=== PATIENT | female | born 1955 | race Caucasian/White ===

== ENCOUNTER → 2017-04-01 | Outpatient (CLI) | payer BC, SELFPAY | PROVIDERS: Visit Provider Nurse Anesthetist, Certified Registered | DX: M54.5 Low back pain (principal) | CPT/HCPCS: 72148; 76376 ==

== ENCOUNTER 2017-04-10 10:56 | Day surgery (SDC) | payer BC, SELFPAY ==
[2017-04-10 11:32] VITALS: BP 154/89; BP 160/84; BP 161/71; BP 178/95; PULSE 71; PULSE 80; PULSE 82; PULSE 84; RESP 18; RESP 20; TEMP 36.2; TEMP 36.6; O2SAT 99
[2017-04-10 11:53] LABS: POC Glucose,Bedside 111 mg/dL
--- NOTE | 2017-04-10 11:55 | HMH.PMPROC ---
- Procedure Date: 04/10/17 Time: 11:55 Anesthesiologist:: Vijay Lerma MD Complications:: None Pre-procedure Diagnosis:: Sacroiliitis Post-procedure Diagnosis:: Same Indications for Procedure:: This patient is a pleasant 61-year-old white female who we are treating for low back pain and bilateral hip pain and low back pain. She has increasing pain in her right hip and right buttock area. Pain is while she is sitting and driving. We did get an MRI of the lumbar spine which shows degenerative changes at L4-L5 and L3-L4 and L2-L3 with facet hypertrophy and bulging disc with neuroforaminal narrowing. She did get a piriformis injection which did not give her much benefit. She presents for right SI joint injection today. She is tender over the right SI joint. She does have a positive Lashanda's test. We will do a right SI joint injection under fluoroscopy today to see if this will help better. Procedure Details:: Right SI joint injection under fluoroscopy Informed consent was obtained and the risks and benefits of the procedure was going to the patient. Patient was taken to the procedure room. Patient was placed prone on the procedure table. The right hip was prepped using ChloraPrep. The skin and subcutaneous tissues were anesthetized using lidocaine. I placed a 22-gauge spinal needle into the inferior aspect of the right SI joint. Needle placement was confirmed with dye. After this we injected 5 mL bupivacaine 0.25% and Depo-Medrol 80 mg into the right SI joint. The patient tolerated the procedure well with no complication. Plan and Disposition:: We have reviewed the MRI with this patient. We will follow-up with her in 2 weeks. If she does not get any benefit we may proceed with a lumbar epidural steroid injection and fluoroscopy at L4-L5.
== END 2017-04-10 12:13 | disposition home or self-care (01) ==
PROVIDERS: Family Provider Internal Medicine Adolescent Medicine; PCP Internal Medicine Adolescent Medicine; Visit Provider Anesthesiology
DX: M46.1 Sacroiliitis, not elsewhere classified (principal)
CPT/HCPCS: 27096; 82962; G0260; J1040; Q9966

== ENCOUNTER → 2017-06-22 12:54 | Outpatient (POV) | payer BC, SELFPAY ==
[2017-06-22 13:35] VITALS: BP 163/77; PULSE 67; RESP 20; O2SAT 99; BMI 40.8
--- NOTE | 2017-06-22 14:21 | P.CONS_ITS ---
[facility] Pain Management SOAP Note Subjective:: This patient is a pleasant 61-year-old white female who we are treating low back pain and bilateral hip pain. She did not get much benefit from her right SI joint injection. However, she is doing physical therapy which has helped tremendously. She did get benefit from a previous left SI joint injection and this pain is just now starting to return. We will see this patient back in 2 months. We will plan on a left SI joint injection if needed. This patient is leaving for [place] in September and would like to get an injection prior to her trip. Objective:: Alert and oriented ?3 in no acute distress. Patient does have an antalgic gait. Motor strength of the lower extremities is 5/5. There is no gross sensory deficit. Patient does have tenderness over left SI joint. There is a positive Lashanda's test on the left side. Assessment:: Degenerative disc disease of lumbar spine with lumbar radiculopathy symptoms. Sacroiliitis. Plan:: We will seek approval and plan on left SI joint injection if needed in August. This will be prior to the patient's trip in September.
== END ==
PROVIDERS: Family Provider Internal Medicine Adolescent Medicine; PCP Internal Medicine Adolescent Medicine; Visit Provider Anesthesiology
DX: M54.16 Radiculopathy, lumbar region (principal); M46.1 Sacroiliitis, not elsewhere classified
CPT/HCPCS: 99212

== ENCOUNTER → 2017-07-13 16:31 | Outpatient (CLI) | payer BC, SELFPAY ==
[2017-07-13 16:49] LABS: Basophils # 0.1 K/mm3 (0-0.2); Basophils % 0.7 % (0.1-2.0); Eosinophils # 0.2 K/mm3 (0.0-0.4); Eosinophils % 1.6 % (0.1-12.0); Hematocrit 43.9 % (37.0-47.0); Hemoglobin 13.5 g/dL (12.2-16.2); Lymphocytes # 2.6 K/mm3 (0.7-4.5); Lymphocytes % 26.4 K/mm3 (10-50); Mean Corpuscular HGB Conc 30.7 g/dL (31.8-35.4); Mean Corpuscular Hemoglobin 28.8 pg (27.0-31.2); Mean Corpuscular Volume 93.9 fl (81-99); Mean Platelet Volume 7.5 fl (7.4-10.4); Monocytes # 0.5 K/mm3 (0.1-1.0); Monocytes % 5.4 % (1.7-9.3); Neutrophils # 6.6 K/mm3 (1.8-7.8); Neutrophils % 65.9 % (37.0-80.0); Platelet Count 312 K/mm3 (142-424); Red Blood Count 4.67 M/mm3 (4.20-5.40); Red Cell Distribution Width 13.2 % (11.5-17.5)
[2017-07-13 17:12] LABS: Alanine Aminotransferase 33 U/L (12-78); Albumin Level 3.8 gm/dL (3.4-5.0); Alkaline Phosphatase 99 U/L (46-116); Anion Gap 11.2 mEq/L (5-15); Aspartate Amino Transferase 19 U/L (15-37); Bilirubin,Total 0.7 mg/dL (0.2-1.0); Blood Urea Nitrogen 17 mg/dL (7-18); Calcium 9.3 mg/dL (8.5-10.1); Carbon Dioxide 31 mmol/L (21.0-32.0); Chloride 104 mmol/L (98-107); Creatinine,Serum 0.77 mg/dL (0.55-1.02); Estimated Glomerular Filt Rate 76 ml/min (>60); Free Thyroxine Index 3.7 ug/dL (5.93-13.13); GFR (African American) 92 ML/MIN (>60); Globulin 3.8 gm/dl (1.3-3.2); Glucose 176 mg/dL (74-106); Magnesium 1.7 mg/dL (1.4-2.2); Potassium 4.2 mmoL/L (3.5-5.1); Sodium 142 mmol/L (136-145); Thyroid Stimulating Hormone 0.42 uIU/ml (0.358-3.740); Total Protein,Serum 7.6 gm/dL (6.4-8.2); Triiodothryronine (T3) Uptake 37 % (31-39)
[2017-07-16 15:51] LABS: Vitamin B12 485 pg/mL (232-1245)
== END ==
PROVIDERS: Visit Provider Internal Medicine Adolescent Medicine
DX: R06.00 Dyspnea, unspecified (principal); E03.9 Hypothyroidism, unspecified
CPT/HCPCS: 36415; 80053; 82607; 83735; 84436; 84443; 84479; 85025

== ENCOUNTER → 2017-08-04 10:19 | Outpatient (POV) | payer BC, SELFPAY ==
[2017-08-04 10:36] VITALS: BP 140/68; PULSE 78; RESP 18; TEMP 36.6; O2SAT 98; BMI 43.2
--- NOTE | 2017-08-04 10:59 | HMH.PAINSOAP ---
[facility] Pain Management SOAP Note Subjective:: This patient is a pleasant 62-year-old white female who presents today for follow-up. We are treating her for low back pain and bilateral hip pain. Patient states she has more hip pain on her right side. Patient has had bilateral SI joint injections and has had good relief with him however she still has continuing right hip pain. Patient is going to [place] in September and would like to discuss potentially having another set of bilateral SI joint injections prior to her trip. Patient is done with well with this in the past 80% relief up to 2 months. Patient has tried and failed physical therapy, anti-inflammatories, medications. Patient does have an MRI showing foraminal narrowing worse on the right side at L4-L5. ROS General: no recent weight change, no fever, no sleep disturbances Respiratory: no cough, no shortness of air, no recurring pulmonary infections Cardiovascular/Peripheral Vascular: No chest pain, No palpitations, no edema, no shortness of breath. Gastrointestinal: no incontinence, normal bowel movements reported Genitourinary: no incontinence Musculoskeletal: Bilateral SI joint pain Psychiatric: normal mood/ affect, [denies depression], [denies anxiety] Neurological: [denies weakness in extremities], [denies balance issues] Objective:: Physical Exam General: Alert and oriented x3, no acute distress, pleasant and cooperative, [on room air] Lungs: Resps E/U, Symmetrical chest expansion, Eyes: PERRL Musculoskeletal: Flexion and extension of lumbar spine somewhat guarded secondary to pain, deep tendon reflexes normal, strength in upper and lower extremities [5/5], slightly antalgic gait noted, positive Lashanda's test bilaterally, extreme point tenderness over bilateral SI joints Neurological: speech clear, fiber artist equal, no gross sensory deficits Assessment:: Sacroiliitis, degenerative disc disease of the lumbar spine radiculopathy Plan:: We will seek approval for bilateral SI joint injections. Patient has done well with these in the past. I believe that this would be beneficial prior to her trip in September. I will follow-up with the patient after her injections. Patient's tried and failed physical therapy, anti-inflammatories, medications. This note was dictated using voice recognition software and may contain errors or omissions
--- NOTE | 2017-08-04 11:13 | P.CONS_ITS ---
[facility] Pain Management SOAP Note Subjective:: This patient is a pleasant 62-year-old white female who presents today for follow-up. We are treating her for low back pain and bilateral hip pain. Patient states she has more hip pain on her right side. Patient has had bilateral SI joint injections and has had good relief with him however she still has continuing right hip pain. Patient is going to [place] in September and would like to discuss potentially having another set of bilateral SI joint injections prior to her trip. Patient is done with well with this in the past 80% relief up to 2 months. Patient has tried and failed physical therapy, anti- inflammatories, medications. Patient does have an MRI showing foraminal narrowing worse on the right side at L4-L5. ROS General: no recent weight change, no fever, no sleep disturbances Respiratory: no cough, no shortness of air, no recurring pulmonary infections Cardiovascular/Peripheral Vascular: No chest pain, No palpitations, no edema, no shortness of breath. Gastrointestinal: no incontinence, normal bowel movements reported Genitourinary: no incontinence Musculoskeletal: Bilateral SI joint pain Psychiatric: normal mood/ affect, [denies depression], [denies anxiety] Neurological: [denies weakness in extremities], [denies balance issues] Objective:: Physical Exam General: Alert and oriented x3, no acute distress, pleasant and cooperative, [ on room air] Lungs: Resps E/U, Symmetrical chest expansion, Eyes: PERRL Musculoskeletal: Flexion and extension of lumbar spine somewhat guarded secondary to pain, deep tendon reflexes normal, strength in upper and lower extremities [5/5], slightly antalgic gait noted, positive Lashanda's test bilaterally, extreme point tenderness over bilateral SI joints Neurological: speech clear, circular knitter helper equal, no gross sensory deficits Assessment:: Sacroiliitis, degenerative disc disease of the lumbar spine radiculopathy Plan:: We will seek approval for bilateral SI joint injections. Patient has done well with these in the past. I believe that this would be beneficial prior to her trip in September. I will follow-up with the patient after her injections. Patient' s tried and failed physical therapy, anti-inflammatories, medications. This note was dictated using voice recognition software and may contain errors or omissions
== END ==
PROVIDERS: Family Provider Internal Medicine Adolescent Medicine; PCP Internal Medicine Adolescent Medicine; Visit Provider Clinical Nurse Specialist Family Health
DX: M51.16 Intervertebral disc disorders with radiculopathy, lumbar region (principal); M46.1 Sacroiliitis, not elsewhere classified
CPT/HCPCS: 99212

== ENCOUNTER → 2017-08-18 07:14 | Outpatient (CLI) | payer BC, SELFPAY ==
--- NOTE | 2017-08-18 07:20 | NM_ITS ---
SPECT MYOCARDIAL PERFUSION SCAN, REST AND STRESS: EXERCISE STRESS: [facility] REVIEW QGS EF AND WALL MOTION EVALUATION: QPS - PERFUSION EVALUATION: HISTORY: Chest pain, SOB, HTN, DM PROCEDURE: Rest imaging performed after administration of10.41 millicuries Tc MIBI. Dose administered at7:35 a.m., with imaging thereafter. Stress imaging was then performed following4 minutes 50 seconds of exercise stress. The patient achieved a heart [id number] with projected heart rate of133 . Resting BP152/83 with stress 220/78. At maximum exercise stress,29.4 millicuries Tc MIBI administered at9:25 a.m. with minutes thereafter. FINDINGS: Perfusion Evaluation: The single slice spect images as well as the [facility] bull's-eye data summary were reviewed. Wall Motion and Ejection Fraction Evaluation: Gated SPECT review and analysis used to evaluate these features. There is a 70 % left ventricular ejection fraction. There seems to be good wall motion Patient exercised 4 minutes 50 seconds on standard Issa protocol. During exercise patient had exercise-induced polymorphic ventricular tachycardia/torsades. The EKG portion of this test was considered highly abnormal Stress images reveal mild to moderately decreased activity in the anterior wall while rest images reveal moderate to severely decreased activity in the anterior wall. Gated images calculated ejection fraction of 70% with some mild apical hypokinesis IMPRESSION: High risk abnormal stress test with exercise-induced polymorphic ventricular tachycardia. Anterior defect with ischemia and reverse redistribution. Normal ejection fraction with mild regional wall motion abnormality
--- NOTE | 2017-08-18 09:02 | HMH.ITSHM ---
NOVOLOG VICTOSA METFORMIN LOSARTAN LOVASTATIN ASA GABAPENTIN LEVOTHYROXINE
== END ==
PROVIDERS: Family Provider Internal Medicine Adolescent Medicine; PCP Internal Medicine Adolescent Medicine; Visit Provider Internal Medicine Adolescent Medicine
DX: R07.9 Chest pain, unspecified (principal)
CPT/HCPCS: 78452; 93017; A9502

== ENCOUNTER 2017-09-08 09:57 | Outpatient (RCR) | payer BC, SELFPAY | END 2017-12-11 14:25 | disposition home or self-care (01) | LOC: PT 09:57 | PROVIDERS: Family Provider Internal Medicine Adolescent Medicine; PCP Internal Medicine Adolescent Medicine; Visit Provider Internal Medicine | DX: I50.30 Unspecified diastolic (congestive) heart failure (principal) | CPT/HCPCS: 93798 ==

== ENCOUNTER → 2017-09-11 07:41 | Outpatient (CLI) | payer BC, SELFPAY | PROVIDERS: Family Provider Internal Medicine Adolescent Medicine; PCP Internal Medicine Adolescent Medicine; Visit Provider Internal Medicine | DX: I10 Essential (primary) hypertension (principal); I51.9 Heart disease, unspecified; I45.10 Unspecified right bundle-branch block | CPT/HCPCS: 93017 ==

== ENCOUNTER → 2017-10-05 11:44 | Outpatient (POV) | payer BC, SELFPAY ==
[2017-10-05 11:59] VITALS: BP 145/90; PULSE 62; RESP 18; O2SAT 98; BMI 38.9
--- NOTE | 2017-10-05 12:00 | HMH.PAINSOAP ---
[facility] Pain Management SOAP Note Subjective:: Patient is a pleasant 62-year-old white female who presents today for follow-up after joint injection and piriformis injection. Patient is doing extremely well. Patient states that she is 80-90% better. Patient is returning from a vacation in which he did a lot of walking and sat on the plane for quite a long time. Patient states she is impressed with how well she is doing. Patient would like to follow-up on an as-needed basis. She rates her pain a 2 out of 10 today. ROS General: no recent weight change, no fever, no sleep disturbances Respiratory: no cough, no shortness of air, no recurring pulmonary infections Cardiovascular/Peripheral Vascular: No chest pain, No palpitations, no edema, no shortness of breath. Gastrointestinal: no incontinence, normal bowel movements reported Genitourinary: no incontinence Musculoskeletal: Bilateral SI joint pain, piriformis pain Psychiatric: normal mood/ affect Neurological: [denies weakness in extremities], [denies balance issues] Objective:: Physical Exam General: Alert and oriented x3, no acute distress, pleasant and cooperative, [on room air] Lungs: Resps E/U, Symmetrical chest expansion, Eyes: PERRL Musculoskeletal: Flexion and extension of lumbar spine somewhat guarded secondary to pain, deep tendon reflexes normal, strength in upper and lower extremities [5/5], antalgic gait noted, tenderness over bilateral SI joints Neurological: speech clear, vice president corporate communications equal, no gross sensory deficits Assessment:: Sacroiliitis, piriformis syndrome Plan:: Follow-up with this patient on an as-needed basis. Patient is doing extremely well at this time. Patient's been instructed to call the office if she needs anything. This note was dictated using voice recognition software and may contain errors or omissions
== END ==
PROVIDERS: Family Provider Internal Medicine Adolescent Medicine; PCP Internal Medicine Adolescent Medicine; Visit Provider Clinical Nurse Specialist Family Health
DX: M46.1 Sacroiliitis, not elsewhere classified (principal)
CPT/HCPCS: 99212

== ENCOUNTER → 2017-11-06 14:24 | Outpatient (CLI) | payer BC, SELFPAY ==
[2017-11-06 16:03] LABS: Anion Gap 11.1 mEq/L (5-15); Blood Urea Nitrogen 34 mg/dL (7-18); Calcium 9.3 mg/dL (8.5-10.1); Carbon Dioxide 30 mmol/L (21.0-32.0); Chloride 102 mmol/L (98-107); Creatinine,Serum 1.22 mg/dL (0.55-1.02); Estimated Glomerular Filt Rate 45 ml/min (>60); GFR (African American) 54 ML/MIN (>60); Glucose 183 mg/dL (74-106); Magnesium 1.9 mg/dL (1.4-2.2); Potassium 5.1 mmoL/L (3.5-5.1); Sodium 138 mmol/L (136-145)
== END ==
PROVIDERS: Visit Provider Physician Assistant
DX: T50.1X5A Adverse effect of loop [high-ceiling] diuretics, initial encounter (principal)
CPT/HCPCS: 36415; 80048; 83735; 83880

== ENCOUNTER → 2017-12-09 11:51 | Outpatient (CLI) | payer BC, SELFPAY | PROVIDERS: PCP Internal Medicine Adolescent Medicine; Visit Provider Internal Medicine | DX: G47.9 Sleep disorder, unspecified (principal); I51.9 Heart disease, unspecified; R40.0 Somnolence; R53.83 Other fatigue; R94.30 Abnormal result of cardiovascular function study, unspecified | CPT/HCPCS: 95806 ==

== ENCOUNTER → 2018-01-22 10:41 | Outpatient (CLI) | payer BC, SELFPAY ==
[2018-01-25 17:18] LABS: H. pylori Breath Test Negative (Negative)
== END ==
PROVIDERS: PCP Internal Medicine Adolescent Medicine; Visit Provider Physician Assistant Medical
DX: R10.13 Epigastric pain (principal)
CPT/HCPCS: 83013

== ENCOUNTER → 2018-03-11 20:07 | Outpatient (CLI) | payer BC, SELFPAY | PROVIDERS: PCP Internal Medicine Adolescent Medicine; Visit Provider Nurse Practitioner Family | DX: G47.33 Obstructive sleep apnea (adult) (pediatric) (principal); E66.9 Obesity, unspecified; I10 Essential (primary) hypertension | CPT/HCPCS: 95810 ==

== ENCOUNTER → 2018-06-07 11:55 | Outpatient (CLI) | payer BC, SELFPAY ==
[2018-06-07 12:35] LABS: Hemoglobin A1C 6.9 % (0.0-7.0)
[2018-06-07 16:16] LABS: Ferritin 18 ng/mL (8-388)
== END ==
PROVIDERS: Visit Provider Specialist
DX: E11.9 Type 2 diabetes mellitus without complications (principal); G25.81 Restless legs syndrome
CPT/HCPCS: 36415; 82728; 83036

== ENCOUNTER → 2018-11-23 08:45 | Outpatient (CLI) | payer BC, SELFPAY ==
--- NOTE | 2018-11-23 09:00 | US_ITS ---
PROCEDURE: US THYROID CLINICAL INDICATION: THYROID NODULE COMPARISON: THY US THYROID from 02/05/2017 FINDINGS: Right lobe: 3.6 x 1.7 x 1.5 cm. There is diffuse heterogeneous echogenicity with multinodular configuration. Left lobe: 4.3 x 1.6 x 1.4 cm with diffuse heterogeneous echogenicity and multinodular configuration. No change in the 8 mm hypoechoic nodule in the upper pole posteriorly. 8 mm hyperechoic nodule lower pole unchanged. 5 mm hypoechoic nodule lower pole unchanged Isthmus: The isthmus is thickened with heterogeneous echogenicity Additional findings: IMPRESSION: No change multinodular goiter Dictated by: Elliot Reilly MD 11/24/2018 05:12 Signed by: <Electronically signed by Elliot Reilly MD in [place]> 11/24/2018 05:12
--- NOTE | 2018-11-23 09:15 | MM_ITS ---
PROCEDURE: MM DIG SCREENING MAMM BI W/CAD CLINICAL INDICATION: SCREENING there is a history of breast cancer in the patient's paternal aunt diagnosed at age 80. There has been a previous biopsy right breast for benign disease. COMPARISON: DMSB DIG MAMM-SCREEN SAMANTHA from 10/01/2015 DMSB DIG MAMM-SCREEN SAMANTHA W/CAD from 03/02/2017 DMDXUAVL DIG MAMM-DX UNI A/VWS-LT W/CAD from 03/19/2017 TECHNIQUE: Standard CC and MLO images were obtained. R2 CAD reviewed. FINDINGS: Scattered fibroglandular densities are seen in both breasts slightly more prominent left breast than right and this was noted previously as well. There are few benign-appearing microcalcifications in each breast. There is a mole marker right breast. There is no suspicious lesion and the low suspicious microcalcifications. IMPRESSION: Fibrofatty parenchyma with no suspicious lesions seen BI-RAD Category: 2 Benign Finding(s) FOLLOW-UP: 1YR 1 Year Follow-up (A letter has been sent to the patient regarding results of the study.) Dictated by: Dr. Russell Hay MD 11/26/2018 11:57 Signed by: <Electronically signed by Dr. Russell Hay MD in [place]> 11/26/2018 11:57
--- NOTE | 2018-11-23 09:15 | XR_ITS ---
PROCEDURE: XR DEXA AXIAL SKELETON CLINICAL HISTORY: OSTEOPENIA COMPARISON: No exams were available for comparison TECHNIQUE: FINDINGS: The L1-L4 density has a T-score of 0.4 with a BMD of 1.229 grams/centimeters This is normal. The lowest hip densities in the left femoral neck with a BMD of 0.844 grams/centimeter sq with T-score of -1.4 consistent with osteopenia IMPRESSION: This patient is considered osteopenic according to the World Health Organization criteria. Bone density is between 10 and 25 percent below young normal . Fracture risk is moderate. Treatment is advised. Based on these results of follow-up exam is recommended in 2 years Dictated by: Elliot Reilly MD 11/23/2018 14:45 Signed by: <Electronically signed by Elliot Reilly MD in [place]> 11/23/2018 14:45
== END ==
PROVIDERS: PCP Internal Medicine Adolescent Medicine; Visit Provider Nurse Practitioner Family
DX: E04.1 Nontoxic single thyroid nodule (principal); M85.89 Other specified disorders of bone density and structure, multiple sites; Z12.31 Encounter for screening mammogram for malignant neoplasm of breast
CPT/HCPCS: 76536; 77067; 77080

== ENCOUNTER → 2018-12-20 07:48 | Outpatient (CLI) | payer BC, SELFPAY ==
--- NOTE | 2018-12-20 08:00 | CA_ITS ---
APPROVED REPORT Exam: Exercise Treadmill Technologist: Erin Fong Ht: 5 ft 4 in Wt: 248 lbs BSA: 2.14 m2 HR: 69 bpm BP: 148/101 mmHg Rhythm: SINUS RHYTHM Medical History Medical History: Hyperlipidemia, HTN, Diabetes Allergies: No known drug allergies Cardiac Risk Factors: HTN, Hyperlipidemia, DM Stress Test Details Test: Exercise stress testing was performed using a Wallace protocol. HR Resting HR: 69 bpm Max Heart Rate (APMHR): 156 bpm Max HR Achieved: 148 bpm Target HR (85% APMHR): 132 bpm % of APMHR: 94 Recovery HR: 80 bpm BP Resting BP: 148.0/101.0 mmHg Max BP: 194.0/76.0 mmHg Recovery BP: 194.0/76.0 mmHg BP response to stress: Abnormal hypertensive response to stress. ECG Resting ECG: SINUS RHYTHM Stress ECG Conclusion WALLACE PROTOCOLCOMPLETED. EXERCISED 6:17 MINUTES WITH MAX HEART RATE 148 BPM WHICH IS 95% OF PM FOR AGE. MAX BP 194/76. METS = 7.0 TEST STOPPED DUE TO LEG WEAKNESS. NO CHEST PAIN OR SOA. POSITIVE LEG WEAKNESS AT PEAK EXERCISE. OCCASIONAL PVC. VENTRICULAR COUPLETS NOTED. GREATER THAN 1.5MM ST DEPRESSION. HYPERTENSIVE RESPONSE. AVERAGE PHYSICAL CAPACITY. OCCASIONAL PVC AND 1 COUPLET NOTED. GREATER THAN 1.5MM ST DEPRESSION. ABNORMAL GXT BUT DOES IN RECOVERY WITHIN 1 MINUTE.. CASE WAS DISCUSSED WITH Abnormal exercise treadmill stress test Electronically signed by : Brian Alvares, 12/23/2018 16:32:28
== END ==
PROVIDERS: PCP Internal Medicine Adolescent Medicine; Visit Provider Internal Medicine
DX: R00.2 Palpitations (principal); R94.30 Abnormal result of cardiovascular function study, unspecified; I45.10 Unspecified right bundle-branch block; E11.9 Type 2 diabetes mellitus without complications; E78.5 Hyperlipidemia, unspecified; G47.33 Obstructive sleep apnea (adult) (pediatric); I10 Essential (primary) hypertension; I51.9 Heart disease, unspecified
CPT/HCPCS: 93017

== ENCOUNTER 2019-02-21 10:30 | Outpatient (RCR) | payer BC, SELFPAY ==
--- NOTE | 2019-02-10 11:42 | HMH.PTOPEV ---
PT Outpatient Evaluation Rehab PT Outpatient Evaluation Start: 02/10/19 10:44 Freq: Status: Active Protocol: Document 02/10/19 10:44 BO (Rec: 02/10/19 11:42 BO [id number]) Electronically Signed By Adis Gray, PT 02/10/19 10:44 Outpatient Therapy Subjective History Subjective History Pt reports falling at home in garage on 01/23/19. Pt reports significant impact to L side/ SH area, and sustained L 8th rib fx. Pt reports lingering L SH blade area pain, burning, and stiffness since injury. Pt reports pain will refer into midline, and inot L UT region, however, reports improved s/s over the last 4-5 days. PMH: cardiac arrythymia Chief Complaint Pain,Stiff Symptom Type Ache,Sharp,Dull,Burning Symptoms Relieved By Rest/Positioning,Heat Symptoms Aggravated By Physical Activity,Lifting Prior Functional Limitations Reaching,Lifting,Housework Current Functional Limitations Reaching,Lifting,Housework, Sleeping Symptom Description Constant but Variable Level of pain today (0-10) 3 Pain scale - at its best (0-10) 3 Pain scale - at its worst (0-10) 6 Shoulder/Elbow Eval Shoulder Objective Measurements Palpation Tenderness Shoulder Palpation Findings Tenderness,Trigger Point, Muscle Guarding Shoulder Palpation Overall Comment 2-3/4 infraspinatus, supraspinatus, UT, lat dorsi Posture Shoulder Posture Standing Position (L) Rounded,(R) Rounded Scapula Posture Sitting Position (L) Protracted,(R) Protracted Scapular Posture Standing Position (L) Protracted,(R) Protracted Flexibilty Deficits Upper Trapezius Muscle Length (R) Moderate Tightness,(L) Moderate Tightness Levaetor Scapulae Muscle Length (R) Moderate Tightness,(L) Moderate Tightness Shoulder ROM Left Shoulder Abduction Active Range of 0-160 Motion (degrees) Shoulder Flexion Active Range of Motion 0-160 (degrees) Query Text: Shoulder MMT Lower Trapezius Strength Grade 4- Good- Middle Trapezius Strength Grade 4- Good- Rhomboids Strength Grade 4- Good- Shoulder Abduction Strength Grade 4 Good Shoulder Flexion Strength Grade 4 Good Shoulder External Rotation Strength 4 Good Grade Shoulder Internal Rotation Strength 5 Normal Grade Subscapularis Muscle Grade
== END 2019-02-21 10:35 | disposition home or self-care (01) ==
LOC: PT 10:30
PROVIDERS: PCP Internal Medicine Adolescent Medicine; Visit Provider Nurse Practitioner Family
DX: M25.512 Pain in left shoulder (principal)
CPT/HCPCS: 97010; 97035; 97110; 97140; 97163

== ENCOUNTER → 2019-11-28 10:09 | Outpatient (CLI) | payer MEDICARE, SELFPAY ==
--- NOTE | 2019-11-28 10:10 | MM_ITS ---
PROCEDURE: MM DIG SCREENING MAMM BI W/CAD Digital Breast Tomosynthesis Included CLINICAL INDICATION: SCREENING There is a history of breast cancer patient's maternal aunt diagnosed in her 80s. There has been a previous biopsy right breast for benign disease. COMPARISON: MG DMSB DIG MAMM-SCREEN SAMANTHA W/CAD from 03/02/2017 MG DMDXUAVL DIG MAMM-DX UNI A/VWS-LT W/CAD from 03/19/2017 MG MM DIG SCREENING MAMM BI W/CAD from 11/23/2018 TECHNIQUE: Standard CC and MLO images and 3D Tomosynthesis was obtained. R2 CAD reviewed. FINDINGS: Mild to moderate scattered fibroglandular densities are seen throughout both breasts. There are couple mole markers right breast. There are few benign-appearing micro calcifications each breast. There is minimal arterial calcification in each breast. There is no suspicious lesion and no suspicious microcalcifications. IMPRESSION: Mild diffuse breast density with no suspicious lesions seen BI-RAD Category: 2 Benign Finding(s) FOLLOW-UP: 1YR 1 Year Follow-up (A letter has been sent to the patient regarding results of the study.) Dictated by: Dr. Russell Hay MD 11/29/2019 08:39 Dr. Russell Hay MD in [place] 11/29/2019 08:39
== END ==
PROVIDERS: PCP Internal Medicine Adolescent Medicine; Visit Provider Nurse Practitioner Family
DX: Z12.31 Encounter for screening mammogram for malignant neoplasm of breast (principal)
CPT/HCPCS: 77063; 77067

== ENCOUNTER 2020-01-30 15:21 | Emergency (ER) | payer MEDICARE, SELFPAY ==
[2020-01-30 15:50] VITALS: BP 138/64; PULSE 65; RESP 18; O2SAT 97; BMI 43.4
[2020-01-30 16:06] VITALS: BP 138/64; PULSE 65; RESP 18; TEMP 36.9; O2SAT 97
== END 2020-01-30 16:07 | disposition home or self-care (01) ==
LOC: UTC 15:27
PROVIDERS: Emergency Provider Nurse Practitioner; PCP Internal Medicine Adolescent Medicine
DX: Z23 Encounter for immunization (principal)
CPT/HCPCS: 90471; 90662; G0008

== ENCOUNTER → 2020-07-27 13:13 | Outpatient (CLI) | payer MEDICARE, SELFPAY ==
--- NOTE | 2020-07-27 13:17 | US_ITS ---
PROCEDURE: MM DIG MAMM DX UNILAT RT CAD Digital Breast Tomosynthesis Included CLINICAL INDICATION: RT BREAST PAIN COMPARISON: MG DIGMAMMS MAMMOGRAM SCREEN-FLIGHT RADIO OFFICER N/C from 04/30/2009 MG DMSB DIG MAMM-SCREEN SAMANTHA from 05/25/2014 MG DMDXUAVL DIG MAMM-DX UNI A/VWS-LT W/CAD from 03/19/2017 MG MM DIG SCREENING MAMM BI W/CAD from 11/23/2018 MG MM DIG SCREENING MAMM BI W/CAD from 11/28/2019 US US BREAST RT COMPLETE from 07/27/2020 TECHNIQUE: Standard CC and MLO images and 3D Tomosynthesis was obtained. R2 CAD reviewed. FINDINGS: Average fibroglandular tissue. Stable 5 mm nodule lateral right breast. There is some minimal nodularity in the retroareolar region. Antony images however do not demonstrate any suspicious lesion. Right breast ultrasound: At 10 o'clock there is a small hypoechoic nodule at 7 x 3 mm probably benign wider than tall mixed echogenicity with no shadowing. Possibly due to a complex cyst.. This may correspond to the stable nodular density noted in this region on the mammogram. The the recommend six-month follow-up IMPRESSION: Probably benign findings. Recommend six-month mammographic and sonographic follow-up BI-RAD Category: 3 Probably Benign Finding Short Term Follow-up FOLLOW-UP: 6M 6Month Follow-up (A letter has been sent to the patient regarding results of the study.) Dictated by: Elliot Reilly MD 07/28/2020 18:24 Elliot Reilly MD in [place] 07/28/2020 18:24
== END ==
PROVIDERS: PCP Internal Medicine Adolescent Medicine; Visit Provider Nurse Practitioner Family
DX: N64.4 Mastodynia (principal); R92.8 Other abnormal and inconclusive findings on diagnostic imaging of breast
CPT/HCPCS: 76641; 77061; 77065; G0279

== ENCOUNTER → 2020-09-06 11:31 | Outpatient (CLI) | payer MEDICARE, SELFPAY ==
[2020-09-06 13:09] LABS: Hemoglobin A1C 10.1 % (4.0-6.0)
[2020-09-06 13:41] LABS: Alanine Aminotransferase 24 U/L (12-78); Albumin Level 4.5 g/dl (3.5-5.0); Albumin/Globulin Ratio 1.8 (1.1-1.8); Alkaline Phosphatase 65 U/L (38-126); Anion Gap 9.7 mEq/L (5-15); Aspartate Amino Transferase 28 U/L (14-36); Bilirubin,Total 1.5 mg/dl (0.2-1.3); Blood Urea Nitrogen 24 mg/dl (7-17); Calcium 9.6 mg/dl (8.4-10.2); Carbon Dioxide 34 mmol/L (22.0-30.0); Chloride 96 mmol/L (98-107); Chol/HDL Ratio 3.3 (1-3.5); Cholesterol 187 mg/dl (140-200); Estimated Glomerular Filt Rate 45 ml/min (>60); GFR (African American) 54 ML/MIN (>60); Globulin 2.5 g/dL (1.3-3.2); Glucose 255 mg/dl (74-100); HDL Cholesterol 56 mg/dl (40-60); Potassium 4.7 mmoL/L (3.5-5.1); Sodium 135 mmol/L (136-145); Triglycerides 136 mg/dl (30-150); VLDL Cholesterol 27 mg/dL (0-40)
[2020-09-06 13:52] LABS: Direct LDL Cholesterol 104.03 mg/dL (100-129)
[2020-09-06 14:33] LABS: Vitamin B12 342 pg/mL (239-931)
== END ==
PROVIDERS: Visit Provider Internal Medicine Adolescent Medicine
DX: E11.9 Type 2 diabetes mellitus without complications (principal); E03.9 Hypothyroidism, unspecified; E78.5 Hyperlipidemia, unspecified; E53.8 Deficiency of other specified B group vitamins; Z79.4 Long term (current) use of insulin
CPT/HCPCS: 36415; 80053; 80061; 82607; 83036; 84443

== ENCOUNTER → 2020-09-19 09:50 | Outpatient (CLI) | payer MEDICARE, SELFPAY ==
--- NOTE | 2020-09-19 09:54 | US_ITS ---
PROCEDURE: US THYROID CLINICAL INDICATION: THYROID NODULE COMPARISON: US US THYROID from 11/23/2018 FINDINGS: Right lobe: 4.7 x 2.5 x 2.1 cm. Similar to prior ultrasound, there is a 7 millimeter nodule in right upper lobe. No other discrete nodules. Left lobe: 4.5 x 2.1 x 1.6 cm. Similar to prior ultrasound, there is a 8 millimeter complex nodule in the upper lobe, a 9 millimeter solid nodule in the lower pole, and a 6 millimeter nodule in the midportion of the lobe. Isthmus: 2 tiny 4 millimeter nodules with isthmus thickness of 6 millimeters similar prior exam. Additional findings: Heterogeneous echogenicity and echotexture of the thyroid gland could indicate changes of a thyroiditis with mild increased vascular flow noted. IMPRESSION: Unchanged bilateral thyroid lobe nodules with mild heterogeneous echogenicity and echotexture of the thyroid gland which may indicate changes of a mild thyroiditis. Dictated by: Chai Martin MD 09/19/2020 13:01 Chai Martin MD in [place] 09/19/2020 13:01
== END ==
PROVIDERS: PCP Internal Medicine Adolescent Medicine; Visit Provider Nurse Practitioner Family
DX: E04.1 Nontoxic single thyroid nodule (principal)
CPT/HCPCS: 76536

== ENCOUNTER → 2021-02-21 11:13 | Outpatient (CLI) | payer MEDICARE, SELFPAY ==
[2021-02-21 12:06] LABS: Chloride 101 mmol/L (98-107); Potassium 4.7 mmoL/L (3.5-5.1); Sodium 138 mmol/L (136-145)
[2021-02-21 12:09] LABS: Alanine Aminotransferase 23 U/L (12-78); Albumin Level 4.3 g/dl (3.5-5.0); Albumin/Globulin Ratio 1.7 (1.1-1.8); Alkaline Phosphatase 50 U/L (38-126); Anion Gap 9.7 mEq/L (5-15); Aspartate Amino Transferase 29 U/L (14-36); Bilirubin,Total 1.5 mg/dl (0.2-1.3); Blood Urea Nitrogen 21 mg/dl (7-17); Calcium 9.3 mg/dl (8.4-10.2); Carbon Dioxide 32 mmol/L (22.0-30.0); Estimated Glomerular Filt Rate 55 ml/min (>60); GFR (African American) 67 ML/MIN (>60); Globulin 2.5 g/dL (1.3-3.2); Glucose 160 mg/dl (74-100); Total Protein,Serum 6.8 g/dl (6.3-8.2)
[2021-02-21 12:35] LABS: Free T4 (Free Thyroxine) 1.34 ng/dl (0.78-2.19)
[2021-02-21 12:47] LABS: Hemoglobin A1C 7.9 % (4.0-6.0)
[2021-02-21 12:50] LABS: Thyroid Stimulating Hormone 0.17 uIU/mL (0.465-4.68)
== END ==
PROVIDERS: Visit Provider Nurse Practitioner Family
DX: E11.65 Type 2 diabetes mellitus with hyperglycemia (principal); E03.9 Hypothyroidism, unspecified; Z79.4 Long term (current) use of insulin
CPT/HCPCS: 36415; 80053; 83036; 84439; 84443

== ENCOUNTER → 2021-04-05 13:59 | Outpatient (CLI) | payer MEDICARE, SELFPAY ==
--- NOTE | 2021-04-05 14:02 | MM_ITS ---
PROCEDURE INFORMATION: Exam: MG Bilateral Diagnostic Breast Tomosynthesis Exam date and time: 04/05/2021 2:02 PM Age: 65 years old Clinical indication: Short-term radiographic follow-up for a questionable right breast mass TECHNIQUE: Imaging protocol: Bilateral Diagnostic tomosynthesis and 2D mammography including computer-aided detection (CAD) when performed. Unilateral or bilateral exam. COMPARISON: 1. MG MM DIG MAMM DX UNILAT RT CAD 07/27/2020 1:32 PM 2. MG MM DIG SCREENING MAMM BI W/CAD 11/28/2019 10:28 AM FINDINGS: MAMMOGRAPHY: The breast tissue is composed of scattered areas of fibroglandular density. There is no stellate mass, architectural distortion or suspicious microcalcifications in either breast to suggest malignancy. Previously noted 0.5 cm mass in the right lateral breast is not well appreciated on the current examination No skin thickening or axillary adenopathy. IMPRESSION: No mammographic evidence of malignancy. Annual bilateral mammographic screening is recommended unless otherwise clinically indicated. ASSESSMENT: BI-RADS Category 1: Negative
--- NOTE | 2021-04-05 14:03 | US_ITS ---
PROCEDURE INFORMATION: Exam: US Right Breast, Complete Exam date and time: 04/05/2021 2:03 PM Age: 65 years old Clinical indication: Short-term radiographic follow-up for questionable right 10 o'clock axis breast mass TECHNIQUE: Imaging protocol: Complete ultrasound of all four quadrants of the Right breast and the retroareolar regions, including ultrasound of the axilla when performed. COMPARISON: US BREAST RT COMPLETE 07/27/2020 2:32 PM FINDINGS: Breast: Sonographic images of the right breast including the retroareolar region, all 4 quadrants and the axilla do not demonstrate any solid masses. Cursors were placed over normal fibrofatty tissue in the 10 o'clock axis. 0.6 cm right 1 o'clock axis cyst. No architectural distortion or acoustical shadowing. No skin thickening or axillary adenopathy. IMPRESSION: No sonographic evidence of malignancy. Annual mammographic screening is recommended unless otherwise clinically indicated. ASSESSMENT: BI-RADS Category 2: Benign
== END ==
PROVIDERS: PCP Internal Medicine Adolescent Medicine; Visit Provider Nurse Practitioner Family
DX: R92.8 Other abnormal and inconclusive findings on diagnostic imaging of breast (principal)
CPT/HCPCS: 76641; 77062; 77066; G0279

== ENCOUNTER 2021-08-05 13:00 | Outpatient (RCR) | payer MEDICARE, SELFPAY ==
--- NOTE | 2021-07-26 15:32 | HMH.PTOPEV ---
PT Outpatient Evaluation Rehab PT Outpatient Evaluation Start: 07/26/21 15:16 Freq: Status: Active Protocol: Document 07/26/21 15:16 BO (Rec: 07/26/21 15:32 BO [id number]) Electronically Signed By Adis Gray, PT 07/26/21 15:16 Outpatient Therapy Subjective History Subjective History Pt reports insidious onset right sided neck and UT mm pain. Pt reports pain has progressed w/referred pain into right suboccipital area, and RUE radicular s/s in bicep /tricep area as well as thumb and index finger. Pt reports previous episode of pain similar to this ~2 yrs ago. Chief Complaint Pain,Stiff,Paresthesia Symptom Type Ache,Dull,Numbness,Tingling Symptoms Relieved By Rest/Positioning,Heat Symptoms Aggravated By Physical Activity Prior Functional Limitations Sleeping Current Functional Limitations Sleeping Symptom Description Constant but Variable Level of pain today (0-10) 7 Pain scale - at its best (0-10) 6 Pain scale - at its worst (0-10) 7 Cervical Eval Palpation Cervical Muscles R Cervical Paraspinal,R CT Junction,R Upper Trapezius Cervical/Thoracic Palpation Findings Tenderness,Trigger Point, Muscle Guarding Posture Head/C-Spine Posture Sitting Position Flexed Head/C-Spine Posture Standing Position Flexed Flexibility Deficits Upper Trapezius Muscle Length (R) Moderate Tightness Scalene Group Muscle Length (R) Moderate Tightness Pectoralis Major Muscle Length (R) Moderate Tightness,(L) Moderate Tightness Pectoralis Minor Muscle Length (R) Moderate Tightness,(L) Moderate Tightness Passive Joint Mobility Cervical PIVM Dec: R OA L OA R AA L AA R C2/3 L C2/3 R C3/4 L C3/4 R C4/5 L C4/5 R C5/6 L C5/6 R C6/7 L C6/7 R C7/T1 L C7/T1 AROM Cervical Spine Extension Active Range of 0-30 Motion (degrees) Cervical Spine Flexion Active Ra
== END 2021-08-05 13:05 | disposition home or self-care (01) ==
LOC: PT 13:00
PROVIDERS: PCP Internal Medicine Adolescent Medicine; Visit Provider Nurse Practitioner Family
DX: M54.2 Cervicalgia (principal); M62.838 Other muscle spasm
CPT/HCPCS: 20560; 97010; 97014; 97035; 97163; G0283

== ENCOUNTER → 2021-12-02 08:44 | Outpatient (CLI) | payer MEDICARE, SELFPAY ==
--- NOTE | 2021-12-02 08:45 | CA_ITS ---
APPROVED REPORT EXAM: Comprehensive 2D, Doppler, and color-flow Echocardiogram Triple Air Valve Tester: Janice Gonzalez RVT Ht: 5 ft 4 in Wt: 266lbs BSA: 2.21 BP: 122/57 mmHg Indications: SOA,BRADYCARDIA,PHTN,OBESITY,DD,DM,,HTN,HLD 2D Dimensions LVOT 2.24 cm (M/F) 1.5-2.5 LA Volume 46.40 mL LA Volume Index 21.09 mL/m2 (M/F) 16-34 M-Mode Dimensions RVDd 2.61 cm (0.9-2.6) LA Diam 3.69 cm (1.9-4.0) LVDd 5.14 cm (3.5-5.7) Ao Diam 3.19 cm (2.0-3.7) LVDs 2.73 cm (3.5-5.7) IVSd 1.04 cm (0.6-1.1) PWd 0.80 cm (0.6-1.1) EF (Teich) 78.00% FS 46.90% EDV (Teich) 126.10 mL TAPSE 3.39 (<1.7) ESV (Teich) 27.80 mL LV Diastology E Decel Time 297.00 (160-240 msec) E/A Ratio 1.2 MED E' 9.20 (< 7 cm/sec) E'/MED E' Ratio 15.86 (>14) LAT E' 8.60 (<10 cm/sec) E/LAT E' Ratio 16.97 (>14) Aortic Valve AO Peak GR. 10.20 mmHg Mitral Valve MV E Max Duke. 146.00 (40-130 cm/s) MV A Velocity 121.00 (40-130 cm/s) E/A Ratio 1.20 MV Decel. Time 297.00 (160-240 ms) MV PHT 87.00 ms Pulmonary Valve PV Peak Velocity 91.00 (50-150 cm/s) Tricuspid Valve TR P. Velocity 332.00 cm/s RAP Estimate 10.00 mmHg RVSP 54.10 mmHg Left Ventricle Left atrium is mildly enlarged her left ventricle is normal size mild concentric left ventricular hypertrophy, estimated ejection fraction 55% with no regional wall motion abnormality, diastolic parameters are inconclusive. Right Ventricle Right atrium and right ventricle mildly enlarged with normal contractility. Aortic Valve Aortic valve is minimally thickened and fibrosed there is no aortic stenosis or aortic insufficiency. Mitral Valve Mitral valve grossly normal, there is trace mitral regurgitation. Tricuspid Valve Tricuspid valve is grossly normal, there is trace tricuspid regurgitation, tricuspid regurgitation jet velocity is inadequate for calculation of the right ventricular systolic pressure. Pulmonic Valve Pulmonic valve is poorly visualized. Great Vessels Aortic root is normal size. Inferior vena cava is poorly visualized. Pericardium No significant pericardial effusion noted. Conclusion 1. Biatrial enlargement, normal left ventricular size, mild concentric left ventricular hypertrophy, estimated ejection fraction 55% with no regional wall motion abnormality, diastolic parameters are inconclusive. 2. Mildly enlarged right ventricle with normal contractility. 3. Trace mitral and tricuspid regurgitation. 4. No significant pericardial effusion noted. 5. Inferior vena cava is poorly visualized. Electronically signed by : Brian Alvares MD 12/02/2021 20:28:25
== END ==
PROVIDERS: PCP Internal Medicine Adolescent Medicine; Visit Provider Nurse Practitioner
DX: R06.00 Dyspnea, unspecified (principal)
CPT/HCPCS: 93306

== ENCOUNTER → 2022-05-21 11:08 | Outpatient (CLI) | payer MEDICARE, SELFPAY ==
--- NOTE | 2022-05-21 11:08 | MM_ITS ---
PROCEDURE INFORMATION: Exam: MG Bilateral Screening 3D Mammography Exam date and time: 05/21/2022 11:00 AM Age: 66 years old Clinical indication: Screening. Personal history of ovarian cancer. No family history of breast cancer. History of benign right excisional biopsy. TECHNIQUE: Imaging protocol: Bilateral Screening tomosynthesis and 2D mammography including computer-aided detection (CAD) when performed. COMPARISON: 1. MG MM DIG MAMM BI DX W/CAD 04/05/2021 1:59 PM 2. MG MM DIG MAMM DX UNILAT RT CAD 07/27/2020 1:32 PM 3. MG MM DIG SCREENING MAMM BI W/CAD 11/28/2019 10:28 AM 4. MG MM DIG SCREENING MAMM BI W/CAD 11/23/2018 9:30 AM FINDINGS: MAMMOGRAPHY: Breast composition: There are scattered areas of fibroglandular density. Mass: No suspicious mass. Architectural distortion: None. Calcifications: No suspicious calcifications. Asymmetric density: None. Skin thickening: None. Axillary adenopathy: None. IMPRESSION: No mammographic evidence of malignancy. Annual screening is recommended unless otherwise clinically indicated. ASSESSMENT: BI-RADS Category 1: Negative
== END ==
PROVIDERS: PCP Internal Medicine Adolescent Medicine; Visit Provider Obstetrics & Gynecology
DX: Z12.31 Encounter for screening mammogram for malignant neoplasm of breast (principal)
CPT/HCPCS: 77063; 77067

== ENCOUNTER → 2022-07-09 11:16 | Outpatient (CLI) | payer MEDICARE, SELFPAY ==
[2022-07-09 11:48] LABS: Basophils # 0.1 K/mm3 (0-0.2); Basophils % 1.5 % (0.1-2.0); Eosinophils # 0.4 K/mm3 (0.0-0.4); Eosinophils % 4.9 % (0.1-12.0); Hematocrit 46.6 % (37.0-47.0); Hemoglobin 14.7 g/dL (12.2-16.2); Lymphocytes # 2.2 K/mm3 (0.7-4.5); Lymphocytes % 30.4 % (10-50); Mean Corpuscular HGB Conc 31.6 g/dL (31.8-35.4); Mean Corpuscular Hemoglobin 30.2 pg (27.0-31.2); Mean Corpuscular Volume 95.6 fl (81-99); Mean Platelet Volume 8.3 fl (7.4-10.4); Monocytes # 0.4 K/mm3 (0.1-1.0); Neutrophils # 4.1 K/mm3 (1.8-7.8); Neutrophils % 58.1 % (37.0-80.0); Platelet Count 265 K/mm3 (142-424); Red Blood Count 4.87 M/mm3 (4.20-5.40); Red Cell Distribution Width 13.8 % (11.5-17.5); White Blood Count 7.1 K/mm3 (4.8-10.8)
[2022-07-09 12:13] LABS: Chloride 100 mmol/L (98-107); Sodium 136 mmol/L (136-145)
[2022-07-09 12:14] LABS: Potassium 4.5 mmoL/L (3.5-5.1)
[2022-07-09 12:16] LABS: Alanine Aminotransferase 28 U/L (12-78); Albumin Level 4.3 g/dl (3.5-5.0); Albumin/Globulin Ratio 1.7 (1.1-1.8); Alkaline Phosphatase 81 U/L (38-126); Anion Gap 13.5 mEq/L (5-15); Aspartate Amino Transferase 36 U/L (14-36); Bilirubin,Total 1.2 mg/dl (0.2-1.3); Blood Urea Nitrogen 25 mg/dl (7-17); Calcium 9.2 mg/dl (8.4-10.2); Carbon Dioxide 27 mmol/L (22.0-30.0); Chol/HDL Ratio 3.3 (1-3.5); Cholesterol 167 mg/dl (140-200); Estimated Glomerular Filt Rate 49 ml/min (>60); GFR (African American) 60 ML/MIN (>60); Globulin 2.6 g/dL (1.3-3.2); Glucose 144 mg/dl (74-100); HDL Cholesterol 51 mg/dl (40-60); Total Protein,Serum 6.9 g/dl (6.3-8.2); Triglycerides 138 mg/dl (30-150); VLDL Cholesterol 28 mg/dL (0-40)
[2022-07-09 12:28] LABS: Direct LDL Cholesterol 95.31 mg/dL (100-129)
[2022-07-09 12:33] LABS: T4 (Thyroxine) 8.7 ug/dl (5.53-11.0)
[2022-07-09 12:47] LABS: Thyroid Stimulating Hormone 4.39 uIU/mL (0.465-4.68)
[2022-07-09 17:25] LABS: 25-OH Vitamin D, Total 32.5 ng/mL (30-100)
[2022-07-09 18:00] LABS: Vitamin B12 243 pg/mL (239-931)
[2022-07-09 18:46] LABS: Free Thyroxine Index 2.8 ug/dL (5.93-13.13); Triiodothryronine (T3) Uptake 32 % (23.5-40.5)
[2022-07-09 20:21] LABS: Creatinine,Urine Random 228 mg/dL (Not Estab.)
== END ==
PROVIDERS: PCP Nurse Practitioner Family; Visit Provider Nurse Practitioner Family
DX: E11.9 Type 2 diabetes mellitus without complications (principal); E55.9 Vitamin D deficiency, unspecified; E03.9 Hypothyroidism, unspecified; E53.8 Deficiency of other specified B group vitamins; I10 Essential (primary) hypertension; Z79.4 Long term (current) use of insulin
CPT/HCPCS: 36415; 80053; 80061; 82043; 82306; 82570; 82607; 83036; 84436; 84443; 84479; 85025

== ENCOUNTER → 2023-01-14 14:48 | Outpatient (CLI) | payer MEDICARE, SELFPAY | PROVIDERS: PCP Internal Medicine Adolescent Medicine | DX: R07.89 Other chest pain (principal) ==

== ENCOUNTER → 2023-03-02 09:21 | Outpatient (CLI) | payer MEDICARE, SELFPAY ==
[2023-03-02 10:00] LABS: Basophils # 0.1 K/mm3 (0-0.2); Basophils % 0.8 % (0.1-2.0); Eosinophils # 0.3 K/mm3 (0.0-0.4); Eosinophils % 3.7 % (0.1-12.0); Lymphocytes # 2.2 K/mm3 (0.7-4.5); Lymphocytes % 29.7 % (10-50); Mean Corpuscular HGB Conc 33.3 g/dL (31.8-35.4); Mean Corpuscular Hemoglobin 32.9 pg (27.0-31.2); Mean Corpuscular Volume 98.9 fl (81-99); Mean Platelet Volume 7.7 fl (7.4-10.4); Monocytes # 0.4 K/mm3 (0.1-1.0); Monocytes % 4.8 % (1.7-9.3); Neutrophils # 4.5 K/mm3 (1.8-7.8); Neutrophils % 60.8 % (37.0-80.0); Platelet Count 230 K/mm3 (142-424); Red Blood Count 4.55 M/mm3 (4.20-5.40); Red Cell Distribution Width 13.1 % (11.5-17.5); White Blood Count 7.5 K/mm3 (4.8-10.8)
[2023-03-02 10:43] LABS: Alanine Aminotransferase 21 U/L (12-78); Albumin Level 4.1 g/dl (3.5-5.0); Albumin/Globulin Ratio 1.6 (1.1-1.8); Alkaline Phosphatase 61 U/L (38-126); Anion Gap 10.1 mEq/L (5-15); Aspartate Amino Transferase 24 U/L (14-36); Bilirubin,Total 1.3 mg/dl (0.2-1.3); Blood Urea Nitrogen 21 mg/dl (7-17); Calcium 8.6 mg/dl (8.4-10.2); Carbon Dioxide 33 mmol/L (22.0-30.0); Chloride 98 mmol/L (98-107); Chol/HDL Ratio 3.7 (1-3.5); Cholesterol 149 mg/dl (140-200); Estimated Glomerular Filt Rate 45 ml/min (>60); GFR (African American) 54 ML/MIN (>60); Globulin 2.5 g/dL (1.3-3.2); Glucose 144 mg/dl (74-100); HDL Cholesterol 40 mg/dl (40-60); Potassium 4.1 mmoL/L (3.5-5.1); Sodium 137 mmol/L (136-145); Total Protein,Serum 6.6 g/dl (6.3-8.2); Triglycerides 142 mg/dl (30-150); VLDL Cholesterol 28 mg/dL (0-40)
[2023-03-02 10:55] LABS: Direct LDL Cholesterol 84.82 mg/dL (100-129)
[2023-03-02 11:01] LABS: 25-OH Vitamin D, Total 42.4 ng/mL (30-100)
[2023-03-02 11:14] LABS: Thyroid Stimulating Hormone 0.28 uIU/mL (0.465-4.68)
[2023-03-02 12:43] LABS: Hemoglobin A1C 6.8 % (4.0-6.0)
[2023-03-02 13:18] LABS: Creatinine,Urine Random 107 mg/dL (Not Estab.)
[2023-03-02 13:21] LABS: Microalbumin < 6.000 mg/L (0-16.7)
== END ==
PROVIDERS: PCP Internal Medicine Adolescent Medicine; Visit Provider Nurse Practitioner Family
DX: E11.69 Type 2 diabetes mellitus with other specified complication (principal); E78.5 Hyperlipidemia, unspecified; E03.9 Hypothyroidism, unspecified; E55.9 Vitamin D deficiency, unspecified; Z79.4 Long term (current) use of insulin
CPT/HCPCS: 80053; 80061; 82043; 82306; 82570; 83036; 84443; 85025

== ENCOUNTER → 2023-03-19 08:55 | Outpatient (CLI) | payer MEDICARE, SELFPAY ==
--- NOTE | 2023-03-19 09:01 | XR_ITS ---
FINAL REPORT CLINICAL HISTORY: OSTEOPOROSIS SCREENING/POST MENOPAUSAL COMPARISON: 11/23/2018 FINDINGS: Using L1-4, the bone mineral density of the spine is 1.132 g/cm2, corresponding to T-score of 0.8, within normal limits. Previously 1.229 g/cm? with a T-score of 0.4. Using the left hip, the bone mineral density of the femoral neck is 0.726 g/cm2, corresponding to a T-score of -1.1, consistent with osteopenia. Previously 0.844 g/cm? with a T-score of -1.4. Using the right hip, the bone mineral density of the femoral neck is 0.659 g/cm2, corresponding to a T-score of -1.7, consistent with osteopenia. Previously 0.858 g/cm? with a T-score of -1.3. FRAX not reported because patient being treated for osteoporosis. NOTE: T-score: Standard deviation compared with peak bone mass of young adult mean. *Following the recommendations of the International Society of Bone densitometry, classification of hip BMD is based on the lower of two T-scores; total hip or femoral neck. IMPRESSION: Diminished bone mineral density consistent with osteopenia. Reviewed, Interpreted and Dictated by Gerson Kemp MD Transcribed by Octavia Brewster Authenticated and [facility]
== END ==
PROVIDERS: PCP Internal Medicine Adolescent Medicine; Visit Provider Nurse Practitioner Family
DX: Z78.0 Asymptomatic menopausal state (principal)
CPT/HCPCS: 77080

== ENCOUNTER 2023-08-04 13:19 | Outpatient (CLI) | payer MEDICARE, SELFPAY ==
--- NOTE | 2023-08-04 13:26 | MM_ITS ---
PROCEDURE INFORMATION: Exam: MG Bilateral Screening 3D Mammography Exam date and time: 08/04/2023 1:29 PM Age: 68 years old Clinical indication: Screening examination TECHNIQUE: Imaging protocol: Bilateral Screening tomosynthesis and 2D mammography including computer-aided detection (CAD) when performed. COMPARISON: 1. MG MM DIG SCREENING MAMM BI W/CAD 05/21/2022 11:00 AM 2. MG MM DIG MAMM BI DX W/CAD 04/05/2021 1:59 PM FINDINGS: MAMMOGRAPHY: Breast composition: There are scattered areas of fibroglandular density. Mass: None. Architectural distortion: None. Calcifications: No suspicious calcifications. Asymmetric density: None. Skin thickening: None. Axillary adenopathy: None. IMPRESSION: No mammographic evidence of malignancy. Annual screening is recommended unless otherwise clinically indicated. ASSESSMENT: BI-RADS Category 1: Negative
== END 2023-08-04 23:59 | disposition home or self-care (01) ==
LOC: RAD 13:20
PROVIDERS: PCP Nurse Practitioner Family; Visit Provider Nurse Practitioner Family
DX: Z12.31 Encounter for screening mammogram for malignant neoplasm of breast (principal)
CPT/HCPCS: 77063; 77067

== ENCOUNTER 2025-02-15 11:52 | Outpatient (CLI) | payer MEDICARE, SELFPAY ==
--- OUTSIDE RECORDS SUMMARY | 2025-01-12 19:00 | XMS_ITS | Continuity of Care Document ---
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 Name Role Phone Martin Thompson MD Unavailable Unavailable Allergies, Adverse Reactions, Alerts Substance Reaction Status Criticality No Known Allergies Active No Inform ation Medications Medication Instructions Dosage Effective Dates (start - stop) Status Comments rosuvastatin 20 mg tablet take 1 tablet by oral route every day 20 MG - Active olmesartan 40 mg tablet take 1 tablet by oral route every day 40 MG - Active pantoprazole 40 mg tablet,delayed release take 1 tablet by oral route every day as needed 40 MG - Active Plavix 75 mg tablet take 1 tablet by oral route every day 75 MG - Active Eliquis 5 mg tablet take 1 tablet by oral route 2 times every day 5 MG - Active hydrochlorothiazide 12.5 mg tablet take 1 tablet by oral route every day 12.5 MG - Active Iron BUCCAL TABLET - Active levothyroxine 125 mcg tablet take 1 tablet by oral route every day 125 MCG - Active albuterol sulfate HFA 90 mcg/actuation aerosol inhaler inhale 2 puff by inhalation route every 4 - 6 hours as needed 2 puff - Active paroxetine 40 mg tablet take 1 tablet by oral route every day 40 MG - Active Procedures Procedure Date EKG Hospital Inter Est Pt Visit, Office, Mod. EKG Global Est Pt Visit, Office, Mod. Lexiscan (regadenoson), .1mg (1/4 Dose) CV Stress/IV, Global Rubidium Chloride 82, Per Study Dose, Up To 60 mci MPI, PET CT, Multi Study, Global 2023 AQMBF, PET CT Add-on Est Pt Visit, Office, Mod. EKG Global Est Pt Visit, Office, Mod. EKG Global Fem.- Pop. Stent(s) W Atherectomy XRay Aorta, Abdom, By Serialography Angiography, Extremity, Bilateral Est Pt Visit, Office, Mod. PVR, Up/Lo Extrem, Single Level, Global US, Lower Extremity Artery/ ABG, Bilat, [facility] EKG Global Est Pt Visit, Office, Mod. PVR, Up/Lo Extrem, Single Level, Global US, Lower Extremity/ ABG, Unilat., Globa l Fem.- Pop. Stent(s) W Atherectomy Tibial- Peroneal RESIDENTIAL CARPENTER, Initial Angiography, Extremity, Bilateral XRay Aorta, Abdom, By Serialography PVR, Up/Lo Extrem, Single Level, Global Est Pt Visit, Office, Mod. PVR, Up/Lo Extrem, Single Level, [facility] US, Lower Extremity Artery/ ABG, Bilat, [facility] Fem.- Pop. Stent(s) W Atherectomy Femoral- Popliteal Stent(s) Tibial- Peroneal RESIDENTIAL CARPENTER, Initial Thromb., Noncoron, 2ndary, incl Inj & Fl uoro Angiography, Extremity, Bilateral XRay Aorta, Abdom, By Serialography Echo W/Doppler Colorflow, Office Global EKG Global Est Pt Visit, Office, Mod. MPI, SPECT, Exer/Pharm, Multi, Hosp Inte rp Only CV Stress/IV, Hosp Interp Only CV Stress Supervision, [facility] Left Heart Cath And Coronaries 13 Consult, New, Office, Mod. [id number] MPI Exer/Pharm, Multi, Hosp Interp Only CV Stress Supervision, Hosp CV Stress/IV, Hosp Inter Only 13 [facility] Advance Directives Directive Yes / No Effective Date File Name No Information Encounters Encounter Description Practice Location Reason(s) For Visit Diagnoses Date Provider Providers Copied on Encounter [facility], [address] [place], [place], [place], [id number], tel:[phone] [facility] OUT No Information 5 Donna Salazar. [address], [place], [place], [id number], . tel:[phone] Referring Provider: Reid Carlson, [address], [place], [address]. tel:[phone] Est Pt Visit, Office, Mod. [facility], [address], [place], [place], [id number], tel:[phone] [facility] HTN, PVD (chief complaint) Essential hypertension Mixed hyperlipidem iaPVD (peripheral vascular disease)BMI 20.0-20.9, adult Oct- 5 Reyes Martines. [address], [place], [place], [id number], . tel:[phone] Referring Provider: Greg Johnson, [address], [place], [address]. tel: [phone] Est Pt Visit, Office, Mod. [facility], [address], [address], [place], [place], [id number], tel: [phone] [facility] chest pain, PVD, HTN (chief complaint) PVD (peripheral vascular disease)Esse ntial hypertension Mixed hyperlipidem iaBMI 21.0-21.9, adult Mar-2 5 Reyes Martines. [address], [place], [place], [id number], [place]. tel: [phone] Referring Provider: Lior Cardoso, [address], [place], [address]. tel: [phone] [facility], [facility] [address] [place], [place], [place], [id number], tel: [phone] [facility] Chest pain, unspecifiedP eripheral vascular disease, unspecifiedE ncounter for other preprocedura l examination 4 [facility]. . tel: [phone] Referring Provider: Lior Cardoso, [address], [place], [address]. tel: [phone] Est Pt Visit, Office, Mod. [facility], [facility] [address], [address], [place], [place], [id number], [place] tel: [phone] [facility] PVD HTN HLD (chief complaint)Ch est Pain (chief complaint) PVD (peripheral vascular disease)Esse ntial hypertension Mixed hyperlipidem iaChest pain in adult 4 Lavelle Tinajero. [address], [place], [place], [id number], [place]. tel: [phone] Referring Provider: Ellen Ramires, [address] [facility] [place], [place], [address]. tel: [phone] Est Pt Visit, Office, Mod. [facility], [address], [address], [place], [place], [id number], tel: [phone] [facility] PVD, HTN (chief complaint) PVD (peripheral vascular disease)Esse ntial hypertension Mixed hyperlipidem iaPre-op evaluation 4 Lavelle Tinajero. [address] [place], [place], [place], [address], [place]. tel:[phone] Referring Provider: Ellen Ramires, [address] [facility] [place], [place], [address]. tel: [phone] [facility], [address], [place], [place], [place], [id number], tel: [phone] [facility] No Information 2 Philip Yanez. [address], [place], [place], [id number], [place]. tel:[phone] Referring Provider: Beau Leal, [address], [place], [address]. tel:[phone] [facility], [address], [address], [place], [place], [id number], tel: [phone] [facility] PAD (chief complaint) PVD (peripheral vascular disease) 2 Philip Yanez. [address], [place], [place], [address], [place]. tel: [phone] [facility], [address], [place], [place], [place], [id number], [place] tel:[phone] [facility] PVD, HTN (chief complaint) Peripheral vascular disease, unspecifiedE ssential (primary) hypertension Mixed hyperlipidem ia 2 Lavelle Tinajero. [address], [place], [place], [address], [place]. tel: [phone] [facility], [address], [address], [place], [place], [id number], [place] tel:[phone] [facility] PVD, HTN (chief complaint) Peripheral vascular disease, unspecifiedE ssential (primary) hypertension Mixed hyperlipidem ia Sep- 2 Lavelle Tinajero. [address], [place], [place], [address], [place]. tel: [phone] Est Pt Visit, Office, Mod. [facility], [address], [address], [place], [place], [id number], tel:[phone] [facility] PVD, HTN (chief complaint) PVD (peripheral vascular disease)Esse ntial hypertension Mixed hyperlipidem ia 2 Lavelle Tinajero. [address], [place], [place], [address], . tel:[phone] Referring Provider: Ellen Ramires, [address] [place] [address], [facility]. tel:[phone] [facility], [address], [address], [place], [place], [id number], tel:[phone] [facility] Peripheral vascular disease, unspecified 2 [facility]. . tel:[phone] Referring Provider: Ellen Ramires, [address] [place] [address], [facility]. tel:[phone] [facility], [address], [address], [place], [place], [id number], tel:[phone] [facility] Peripheral vascular disease, unspecified 2 Lavelle Tinajero. [address], [place], [place], [address], [place]. tel:[phone] [facility], [address], [address], [place], [place], [address], tel:[phone] [facility] PVD (peripheral vascular disease) with claudication 2 Lavelle Tinajero. [address], [place], [place], [address], [place]. tel:[phone] [facility], [address], [place], [place], [place], [id number], tel:[phone] [facility] Chest pain, unspecified 2 Donna Salazar. [address], [address], [place], [place], [id number], . tel:[phone] Est Pt Visit, Office, Mod. [facility], [address], [address], [place], [place], [id number], tel:[phone] [facility] PVD (chief complaint) PVD (peripheral vascular disease)Esse ntial hypertension Tobacco abuseChest pain at rest 2 Anibal Dudley. [address], [place], [place], [id number], . tel:[phone] Referring Provider: Beau Leal, [address], [place], [address]. tel:[phone] [facility], [address], [address], [place], [place], [id number], tel:[phone] [facility] PVD (peripheral vascular disease) 2 [facility]. . tel:[phone] Referring Provider: Beau Leal, [address], [place], [address]. tel:[phone] [facility], [address], [address], [place], [place], [address], tel:[phone] [facility] Peripheral vascular disease, unspecifiedE ssential (primary) hypertension Mixed hyperlipidem ia 2 [facility]. . tel:[phone] [facility], [address], [address], [place], [place], [address], tel:[phone] [facility] No Information 2 Philip Yanez. [address], [place], [place], [id number], [place]. tel:[phone] Referring Provider: Beau Leal, [address], [place], [address]. tel:[phone] [facility], [address], [address], [place], [place], [id number], [place] tel:[phone] [facility] symptomatic PVD (chief complaint) No Information 2 Lavelle Tinajero. [address], [place], [place], [id number], [place]. tel:[phone] Est Pt Visit, Office, Mod. [facility], [address], [address], [place], [place], [address], [place] tel:[phone] [facility] PVD (chief complaint) PVD (peripheral vascular disease)Esse ntial hypertension Mixed hyperlipidem ia 2 Lavelle Tinajero. [address], [place], [place], [address], [place]. tel:[phone] Referring Provider: Ellen Ramires, [address] [facility] [place], [place], [address]. tel:[phone] [facility], [address], [address], [place], [place], [id number], [place] tel:[phone] [facility] PVD (peripheral vascular disease) 2 Lavelle Tinajero. [address], [place], [place], [address], [place]. tel:[phone] [facility], [address], [address], [place], [address], [place] tel:[phone] [facility] Dizziness, HTN (chief complaint) Peripheral vascular disease, unspecified [facility]. . tel:[phone] Referring Provider: Lior Cardoso, [address], [place], [address]. tel: [phone] [facility], [address], [place], [place], [address], tel:[phone] [facility] Peripheral vascular disease, unspecified 1 Lavelle Tinajero. [address], [place], [place], [id number], . tel:[phone] [facility], [address], [place], [place], [id number], tel:[phone] [facility] PVD (peripheral vascular disease) 1 Lavelle Tinajero. [address], [place], [place], [id number], [place]. tel:[phone] [facility], [address], [place], [place], [id number], tel: [phone] [facility] No Information 1 Lavelle Tinajero. [address], [place], [place], [id number], [place]. tel:[phone] Referring Provider: Lior Cardoso, [address], [place], [address]. tel:[phone] [facility], [address], [place], [place], [id number], tel:[phone] [facility] Bilateral leg pain (chief complaint) Pain in right legEssential (primary) hypertension Shortness of breathTobacc o abuse Sep 1 Lavelle Tinajero. [address], [place], [address], [place]. tel:[phone] Est Pt Visit, Office, Mod. [facility], [address], [place], [place], [address], tel:[phone] [facility] Freeform HPI (chief complaint)HT N, HLD (chief complaint) Bilateral leg painEssentia l hypertension Shortness of breath 1 Lavelle Tinajero. [address], [place], [place], [id number], [place]. tel: [phone] Referring Provider: Ellen Ramires, [address] [place] [address], [place], [address]. tel: [phone] [facility], [address], [address], [place], [place], [address], [place] tel: [phone] [facility] No Information 1 Lavelle Tinajero. [address], [place], [place], [address], [place]. tel: [phone] [facility], [address], [address], [place], [place], [address], [place] tel:[phone] [facility] Chest Pain, UnspecifiedH yperlipidemi aHypertensio n, BenignFamily Hx Of Ischemic Heart Disease 1 [facility]. . tel: [phone] [facility], [address], [address], [place], [place], [address], [place] tel: [phone] [facility] OUT No Information 0 Nataly Ordonezn. [address], [address], [place], [place], [address], [place]. tel: [phone] Referring Provider: Ellen Ramires, [address] [place] [address], [address]. tel:[phone] [facility], [address], [address], [place], [address], [place] tel: [phone] [facility] [place] No Information 9 Nataly Ordonezn. [address], [address], [place], [place], [address], [place]. tel: [phone] Referring Provider: Tonie Vasquez, [address] [place] [address] , [place], [address]. tel:[phone] [facility], [address], [address], [place], [place], [address], [place] tel:[phone] [facility] [place] No Information 5 Jn Alvarez. [address], [place], [place], [id number], [place]. tel:[phone] Referring Provider: Conor Babin, [address] [place], [address]. tel:[phone] [facility], [address], [address], [place], [place], [id number], [place] tel:[phone] [facility] OUT No Information 3 Day Mulugeta. [address], [address], [place], [place], [id number], [place]. tel:[phone] Referring Provider: Noah Posey, [address], [place], [address]. tel:[phone] [facility], [address], [address], [place], [place], [address], [place] tel:[phone] [facility] No Information 3 Lavelle Tinajero. [address], [place], [place], [address], [place]. tel:[phone] Referring Provider: Lior Cardoso, [address], [place], [address]. tel:[phone] Consult, New, Office, Mod. [id number] [facility], [address], [address], [place], [place], [address], [place] tel:[phone] [facility] Chest Pain, UnspecifiedH yperlipidemi aHypertensio n, BenignFamily Hx of Cardiovascul ar Disease 3 Lavelle Tinajero. [address], [place], [place], [address], [place]. tel:[phone] Referring Provider: Ellen Ramires, [address] [place], [address]. tel:[phone] [facility], [address], [place], [address], tel:[phone] [facility] OUT No Information 3 No Information Referring Provider: Ellen Ramires, [address] [place], [address]. tel:[phone] [facility], [address], [place], [address], tel:[phone] [facility] ER No Information No Information Referring Provider: ALPHONSE Kuo, [place], [address]. tel:[phone] Family History Family Member Type Diagnosis Age At Onset Father Problem (finding) hypertension Father Problem (finding) Father Problem (finding) Myocardial infarction ( Cause Of ) Father Problem (finding) Diabetes mellitus Payers Payer name Insurance type Covered democrat ID Alejandroa hayden(s) [facility] Advantage O [id number] Social History Type Description Quantity Date Captured Comments Sex Female Smoking Status No Information Chief Complaint And Reason For Visit No Information Reason For Referral Reason For Referral No Information Plan Of Treatment Date Type Action Status Goal Tobacco cessation counseling completed Goal Tobacco cessation counseling completed Appointment Leola Walters BOOKED Future Order: Radiology Order AB I (Rest / Stress) soon. ([id number]), Sent on: Sent Future Order: Radiology Order US Extremity (Arterial) - Dylan Lower soon. ([id number]), Sent on: Sent Future Order: Radiology Order AB I (Rest / Stress) on 04/15/2021. ([id number]), Appointment on: , Collected on: , Sent on: Sent Nov-02-2021 Future Order: Radiology Order US Extremity (Arterial) - Dylan Lower soon. ([id number]), Sent on: Sent History Of Present Illness Encounter Date Complaint History Of Prese nt Illness HTN, PVD Ms. Walters is a 69 year old female here for a 3 month follow up for HTN. PMHx of PVD, HTN, and HLD. . Pt denies chest pain, dyspnea, palpitations, dizziness, claudication, syncope and near syncope. No orthopnea or PND. Meds, labs, testing, diet and exercise discussed with patient.-S/p AFRO with intervention by Dr. Stacy 09/29/2024 chest pain, PVD, HTN Ms. Raysa Brewster is a 69 year old female here for a 6 month follow up. Pt reports stable palpitations, dizziness, and edema. Pt. denies chest pain, dyspnea, claudication, syncope and near syncope. No orthopnea or PND. Meds, labs, testing, diet and exercise discussed with patient. No recent hospital or ER visits. PVD HTN HLD Ms. Walters is a 68 year old female here for PVD, HTN, and HLD. Pt reports chest pain and dizziness. Pt denies any other cardiac complaints and is able to complete ADLs without limitation. Chest Pain The patient comp lains of chest discomfort. The discomfort is located in the center of chest. The pain does not radiate. The patient describes the pain as aching and sharp. The patient states stress makes it worse. The pain is relieved with rest. Pertinent negatives include dyspnea, nausea and diaphoresis. PVD, HTN Ms. Walters is a 67 year old female here for PVD, HTN. Pt c/o continuing leg pain, she switched care for her legs to Dr. Stacy. She denies any other cardiac symptoms at this time. PAD 09/04/21:Ms. Polly Vargas is a 66 year old female here for PVD, HTN. She reports leg cramps at night and dyspnea. She states that she is also having considerable leg pain with ambulation, R>L. Pt is unable to ambulate 20 feet without stopping due to claudication. It has limited her ability to complete ADLs. She struggles to go grocery shopping as she cannot walk the isles of the store without stopping multiple times. She denies any other cardiac symptoms at this time.07/31/21:RIGHT: KEV 0.71, 75-99% prox SFA, patent SFA stent, 2V runoff via AT/peroneal.LEFT: KEV 0.8, diffuse plaque throughout w/ normal velocities, patent stents SFA/[employer], 3V run off. PVD, HTN Ms. Walters is a 66 year old female here for PVD, HTN. She reports leg cramps at night and dyspnea. She states that she is also having considerable leg pain with ambulation. Pt is unable to ambulate 20 feet without stopping due to claudication. It has limited her ability to complete ADLs. She struggles to go grocery shopping as she cannot walk the isles of the store without stopping multiple times. She denies any other cardiac symptoms at this time.. PVD, HTN Ms. Walters is a 66 year old female here for PVD, HTN. She reports leg cramps at night and dyspnea. She states that she is also having considerable leg pain with ambulation, has started to limit her ADL- struggles to go grocery shopping as she cannot walk the isles of the store without having to stop multiple times. She denies any other cardiac symptoms.. PVD, HTN Ms. Walters is a 66 year old female here for PVD, HTN. She reports leg cramps at night and dyspnea. She states that she is also having considerable leg pain with ambulation, has started to limit her ADL- struggles to go grocery shopping as she cannot walk the isles of the store without having to stop multiple times. She denies any other cardiac symptoms at this time. PVD Mrs. Chen weaver is a 65 year old female here for a follow up for s/p AFRO and PVD. Pt reports intermittent substernal chest discomfort. She describes the pain as a dull and cold sensation. She can push on the area and recreate the pain. She reports dyspnea, rare palpitations, and edema in her left leg. Pt denies claudication, syncope, and near syncope. No orthopnea or PND. Meds, labs, and testing reviewed. . symptomatic PVD Ms. Walters is a 65 year old female here for follow up on symptomatic PVD. She reports claudication, dizziness, and dyspnea on exertion. She denies any other symptoms at this time. PVD Ms Brewster is a 65 yr old female here for worsening leg pain to her left leg with known PVD. She states that her pain started late Thursday night. She describes this as cramping with numbness in her foot. She also feels her foot is cold. She went to the ER but left before she could be seen because the lines were too long.. Dizziness, HTN Mrs. Giles fernandez is a 65 year old female here as a work in for Dizziness and HTN. She reports dizziness. She states she feels shaky when her BP is elevated. She denies chest pain, dyspnea, palpitations, syncope, edema, and claudication. No orthopnea and PND. Meds, labs, and testing reviewed. Exercise and diet discussed with patient . Bilateral leg pain Ms. Ailin hoff is a 65 year old female here for recent bilateral leg pain. She reports mild dyspnea upon exertion and fatigue. She states that she has also been having significant trouble with leg pain bilaterally. She cannot walk very far before having to stop and rest. She states that she had ultrasounds done recently and has been concerned with the results.. HTN, HLD Ms. Walters is a 65 year old female here for recent bilateral leg pain. She reports mild dyspnea upon exertion and fatigue. She states that she has also been having significant trouble with leg pain bilaterally. She cannot walk very far before having to stop and rest. She states that she had ultrasounds done recently and has been concerned with the results.. Functional Status Date Functional Assessmen t No Information Instructions Date Instruction Additional Infor marcus Healthy Food Choices Assessments Type Assessment Date No Information Patient Care Teams Name Effective Dates (start - stop) Status Members Greg Marquis MD - active [Nurse pr actitioner] Bobbi Ortega NP.(Lead)
[2025-02-15 08:59] VITALS: BMI 29.2
--- OUTSIDE RECORDS SUMMARY | 2025-02-15 11:55 | XMS_ITS | Data Portability ---
Author Organization [facility], [facility] Address [address] [place] [address] Assessment No assessment recorded. Plan of Treatment Reminders Order Date Submit Date Provider Last Modified By Organization Details Last Modified Time Details Appointments FOLLOW UP [facility] 2025 01:30P M DR. HANSEN Not available Not available Not available Lab surgical pathology study 2024 025 [facility], [address] [place] [address], [phone], 05/04/2024 11:40:30 Referral None recorded. Procedures None recorded. Surgeries None recorded. Imaging None recorded. Medication Orders None recorded. Patient TargetsNo targets recorded. Patient InstructionsNo instructions recorded. Reason for Referral None Reported. Results Created Date Observation Date Name Description Value Unit Range Abnormal Flag Note LastModifiedBy Organization Detail LastModifiedTime 05/03/1905/03/2024 [facility] surgical SEE BELOW abnormal [place] topat holog y Repor t NAME: LEOLA BREWSTER PATH: [id number] PROCE DURE DATE: 05/03 SIGNO UT DATE: 05/04 Copy to: Diagn osis: Right templ e- BASAL CELL CARCI NOMA Comme nt: The deep zoila n is invol medina with tumor . AJCC: T1, Nx, Mx SOURC E OF SPECI MEN: SKIN, R TEMPL E CLINI [facility] INFOR MATIO N: R/O: BCC Gross Descr iptio n: The speci men consi sted of multi ple (x2) glass fragm ents which measu red 9 x 6 x 1 mm in aggre gate. Bisec marry the large r piece . The small er piece submi tted in toto. All tissu e submi tted in one casse tte. Micro scopi c Descr iptio n: Nests and aggre dos santos of immat ure basal oid epith elial cells with perip heral palis ading are prese nt in the dermi s. BRITTANY MARTE MD Carrie d Out Date: 05/04 11:40 1 Not Available [facility] [address] [place], [phone], 05/04/2024 11:40:30 Result Notes None recorded. Procedures Surgical History Date Name Laterality Status Provider Name and Address Organization Details Recorded Time 05/03/2024 [place] Biopsy completed [facility] 05/03/2024 13:11:34 Imaging Results None recorded. Procedure Notes None recorded. Medical Equipment None Reported. Medications Name Sig Start Date Stop Date Status Note LastModified by Organization Details LastModified Time bisoprolol 10 mg-hydrochlo rothiazide 6.25 mg tablet Take 1 tablet every day by oral route. active Not Available Not Available No t Available losartan active Not Available Not Avai lable Not Available lovastatin active Not Available Not Av ailable Not Available gabapentin active Not Available Not Av ailable Not Available Mounjaro active Not Available Not Avai lable Not Available Vitals None Recorded Social History Question Answer Notes LastModified by Organizat ion Details LastModified Time Tobacco Smoking Status [facility] 13:05:12 Sunscreen Use? Yes [id number] Informat ion not available 05/03/2024 Tanning Bed Use No [email or web address] Informa tion not available 05/03/2024 Are You Or Trying To Become ? No [email or web address] Information not available 05/03/2024 Are You On Control? No [email or web address] Information not available 05/03/2024 Are You ? No [email or web address] Information not available 05/03/2024 What Was The Date Of Your Most Recent Tobacco Screening? 05/03/2024 [email or web address] Information not available 05/03/2024 Sex: Unknown Functional Status Question Answer Note LastModified by Organizat ion Details LastModified Time Do you or have you ever used any other forms of tobacco or nicotine? No [email or web address] Information not available 05/03/2024 What is your level of alcohol consumption? Occasional [email or web address] Information not available 05/03/2024 Mental Status None recorded. Family History Nothing Reported Notes:mother had several ski n cancers. Medical History No medical history recorded. Gynecological HistoryNo gynecological history recorded. Obstetrics History GPAL:G 0 P 0 0 0 0 Past Encounters Encounter ID Performer Location Encounter Start Date Encounter Closed Date Diagnosis/Indication Diagnosis SNOMED-CT Code Diagnosis ICD10 Code Diagnosis IMO Codes Diagnosis Note [id number] SARAH HANSEN MD [address] [phone] 05/03/2024 12:55:11 05/03/2024 13:21:02 Multiple benign melanocytic nevi 988097054 D22.5 L81.4 D18.01 L82.1 Benign appearing lesions. Reassuranc e given. Sun protection discussed with pt. Call with questions or concerns. Neoplasm o f uncertain behavior of skin [id number] D48.5 The etiology of lesion(s) discussed. ro bcc vs akBiopsy recommende d.Will call pt with results or post to portal if benign. [id number] ARCHIE JORDAN MD [address] [phone] 07/07/2024 10:45:54 07/12/2024 11:53:36 Health Concerns Section Related Observation LastModified by Organization Detai ls LastModified Time None Recorded Concern Status LastModified by Organization Details LastModified Time None Recorded Advance Directives Directive None Recorded Payers Insurance Date Sequence Insurance Name Policy Number Policy Varghese Covered Member ID Varghese Member ID Guarantor Name 07/13/2024 1 [employer] (MEDICARE REPLACEMENT/A DVANTAGE - PPO) [id number] Leola Brewster [id number] Leola Brewster Notes Date Note Type Note Provider Name and Address Organization Details Recorded Time 05/03/2024 text/html ROS as noted in the HPI new ptsk ch -- Pt says she is over due for a FBSE. Pt states I noticed a spot on my right adventism,it is scaly, dry, and itchy. I had spots removed on my left breast that came back benign SARAH HANSEN MD [address] [facility] [place], [address], [facility] 05/03/2024 13:43:13 OBGyn Episode No OBEpisode recorded.
--- NOTE | 2025-02-15 13:06 | ECG_ITS ---
APPROVED REPORT Exam: Resting ECG HR:60 bpm ECG Measurements Heart Rate 60 AXES AR 172 P 64 QRSd 94 QRS -8 QT 433 T 51 QTc 435 Conclusion SINUS RHYTHM LOW QRS VOLTAGE IN PRECORDIAL LEADS [QRS DEFLECTION BORDERLINE ECG UNCONFIRMED REPORT Electronically signed by : Everardo Rodgers MD 02/16/2025 13:11:23
[2025-02-15 13:32] LABS: Hematocrit 43.8 % (37.0-47.0); Hemoglobin 14.6 g/dL (12.2-16.2); Immature Granulocytes % 0.3 %; Mean Corpuscular HGB Conc 33.3 g/dL (31.8-35.4); Mean Corpuscular Hemoglobin 32.5 pg (27.0-31.2); Mean Corpuscular Volume 97.6 fl (81-99); Nucleated Red Blood Cells % 0 %; Platelet Count 210 K/mm3 (142-424); Red Blood Count 4.49 M/mm3 (4.20-5.40); Red Cell Distribution Width-SD 45.0 fL; White Blood Count 10.6 K/mm3 (4.8-10.8)
[2025-02-15 13:34] LABS: Alanine Aminotransferase 42 U/L (12-78); Albumin Level 4.2 g/dl (3.5-5.0); Albumin/Globulin Ratio 1.7 (1.1-1.8); Alkaline Phosphatase 84 U/L (38-126); Anion Gap 11.7 mEq/L (5-15); Aspartate Amino Transferase 31 U/L (14-36); Bilirubin,Total 1.6 mg/dl (0.2-1.3); Blood Urea Nitrogen 25 mg/dl (7-17); Calcium 9.2 mg/dl (8.4-10.2); Carbon Dioxide 27 mmol/L (22.0-30.0); Chloride 99 mmol/L (98-107); Creatinine Clearance Estimated 53 mL/min (50-200); Creatinine,Serum 1.20 mg/dl (0.52-1.04); Estimated Glomerular Filt Rate 44 ml/min (>60); GFR (African American) 54 ML/MIN (>60); Globulin 2.5 g/dL (1.3-3.2); Glucose 228 mg/dl (74-100); Potassium 3.7 mmoL/L (3.5-5.1); Sodium 134 mmol/L (136-145); Total Protein,Serum 6.7 g/dl (6.3-8.2)
== END 2025-02-15 23:59 | disposition home or self-care (01) ==
LOC: PREOP 11:53
PROVIDERS: PCP Internal Medicine Adolescent Medicine; Visit Provider Obstetrics & Gynecology
DX: Z01.810 Encounter for preprocedural cardiovascular examination (principal); Z01.812 Encounter for preprocedural laboratory examination; R94.31 Abnormal electrocardiogram [ECG] [EKG]
CPT/HCPCS: 80053; 85025; 93005

== ENCOUNTER 2025-02-17 09:58 | Day surgery (SDC) | payer MEDICARE, SELFPAY ==
[2025-02-17 10:13] VITALS: BP 108/63; PULSE 70; RESP 16; O2SAT 96; BMI 29.2
[2025-02-17] MEDS: LIDOCAINE 1% 5ML PF VIAL 10 ML (10:32)
[2025-02-17] MEDS: BUPIVACAINE 0.25% 10ML INJ 25 MG IJ (10:32)
[2025-02-17] MEDS: DEXAMETHASONE 10MG/ML 1ML VIAL 10 MG (10:32)
[2025-02-17 10:33] VITALS: BP 108/63; PULSE 70; RESP 18; O2SAT 96
[2025-02-17 10:36] VITALS: BP 108/63; PULSE 70; RESP 18; O2SAT 96
[2025-02-17 10:53] VITALS: BP 110/70; PULSE 64; RESP 16; O2SAT 98
--- NOTE | 2025-02-17 10:54 | EXP.HP ---
History of Present Illness *Admission Date: 02/17/25 *Reason for visit:: Right sacroiliac joint injection *History of present illness: This patient has right-sided hip pain she is tender over the right SI joint. She presents for right SI joint injection today [facility] Disclaimer: The information contained in this section may have been updated after the patient was seen, as this information can be updated by other users. Medical History Labia minora hypertrophy left labia minora Vulvar irritation Urethral caruncle Urethrocele, female Lichen sclerosus Sinus bradycardia by electrocardiogram Sinus bradycardia Dizziness Right bundle branch block (RBBB) HTN (hypertension) Diastolic dysfunction Surgical History History of total abdominal hysterectomy History of skin surgery basal cell carcinoma Previous back surgery History of cholecystectomy H/O tubal ligation Family History Other Cancer Coronary artery disease Diabetes Hyperlipidemia Hypertension Thyroid disorder Social History Smoking Status: Never smoker second hand exposure: No alcohol intake: never substance use type: denies use current occupational status: retired Travel in the last 8 weeks?: None household members: none housing: house current occupational exposures/hazards: No caffeine: Yes Other Medical History Have you received the Flu Vaccine for this season: No Have you received the Pneumonia Vaccine: No Meds Home Medications and Allergies Home Medications ?Medication ?Instructions ?Recorded ?Confirmed ?Type aspirin 81 mg chewable tablet 81 mg PO DAILY heart 08/20/17 02/17/25 History cyanocobalamin (vitamin B-12) 1,000 mcg IM MONTHLY suppliment 08/20/17 02/17/25 History 1,000 mcg/mL injection solution hyoscyamine sulfate 0.125 mg tablet 0.125 mg PO QID PRN unknown 08/25/17 02/17/25 History gabapentin 300 mg capsule 300 mg PO TID Pain 01/28/18 02/17/25 History furosemide 40 mg tablet 40 mg PO QAM Fluid 11/02/18 02/17/25 History lovastatin 20 mg tablet 20 mg PO DAILY Cholesterol 11/28/19 02/17/25 History dapagliflozin propanediol 10 mg 10 mg PO DAILY 11/26/20 02/17/25 History tablet (Farxiga) escitalopram oxalate 10 mg tablet 20 mg PO DAILY 04/22/22 02/17/25 History levothyroxine 137 mcg capsule 137 mcg PO DAILY 04/22/22 02/17/25 History bisoprolol fumarate 5 mg tablet See Rx Instructions .Route 02/11/24 02/17/25 Rx .COMPLEX #90 tabs estradiol 0.01% (0.1 mg/gram) 1 g vaginal DAILY #42.5 grams 12/23/24 02/17/25 Rx vaginal cream losartan 100 mg tablet 50 mg PO DAILY blood pressure 12/23/24 02/17/25 History tirzepatide 15 mg/0.5 mL 15 mg SQ WEEKLY 12/23/24 02/17/25 History subcutaneous pen injector (Loree) lorazepam 0.5 mg tablet 0.5 mg PO TID PRN Anxiety 01/25/25 02/17/25 History baclofen 5 mg tablet 5 mg PO TID #42 tabs 02/06/25 02/17/25 Rx diclofenac sodium 25 mg 25 mg PO BID 02/15/25 02/17/25 History tablet,delayed release meloxicam 15 mg tablet 15 mg PO DAILY PRN Pain 02/15/25 02/17/25 History New Prescriptions to Start Prescriptions: Allergies Allergy/AdvReac Type Severity Reaction Status Date / Time No Known Allergies Allergy Verified 02/17/25 10:14 Exam Data for Last 24 hours Vital signs and Labs for Last 24 Hours: Pulse Resp BP Pulse Ox O2 Del Method 64 16 110/70 98 Room Air 02/17/25 10:53 02/17/25 10:53 02/17/25 10:53 02/17/25 10:53 02/17/25 10:53 I & O for Last 24 hours: Intake & Output 02/14/25 02/15/25 02/16/25 02/17/25 11:59 11:59 11:59 11:59 Weight 170 lb *Routine HEENT Exam Head: Present normocephalic Eye: Present EOMI ENT: Present mucous membranes moist *Routine Respiratory Exam Respiratory: Present CTA bilaterally *Routine Cardiovascular Exam Cardiovascular: Present RRR, Normal S1 and Normal S2 *Routine Abdominal Exam Abdominal: Present soft *Routine Rectal Exam Rectal:: deferred *Routine Genitalia Exam Genitalia:: deferred Assessment and Plan *Assessment and plan (1) Sacroiliitis: Status: Acute Category: Medical Code(s): M46.1 - Sacroiliitis, not elsewhere classified Plan Right SI joint injection under fluoroscopy
--- NOTE | 2025-02-17 10:56 | EXP.PAIN.PRO ---
Procedure Date: 02/17/25 Time: 10:56 Anesthesiologist:: Vijay Lerma MD Complications:: None Pre-procedure Diagnosis:: Sacroiliitis Post-procedure Diagnosis:: Same Indications for Procedure:: This patient is a pleasant 69-year-old white female who we are treating for right-sided this. She is tender over the right SI joint. She has positive Lashanda's test on the right side. She has positive Ailyn test on the right side. She has positive SI joint compression test on the right side. She has positive distraction test on the right side. We are planning on a diagnostic right SI joint injection under fluoroscopy today. If successful she may be a candidate for therapeutic SI joint injections in the Procedure Details:: Right SI joint injection under fluoroscopy Informed consent was obtained and the risks and benefits of the procedure was going to the patient. Patient was taken to the procedure room. Patient was placed prone on the procedure table. The right hip was prepped using ChloraPrep. The skin and subcutaneous tissues were anesthetized using lidocaine. I placed a 22-gauge spinal needle into the inferior aspect of the right SI joint. Needle placement was confirmed with dye. After this we injected 5 mL bupivacaine 0.25% into the right SI joint. The patient tolerated the procedure well with no complication. Plan and Disposition:: Will follow-up with this patient in 2 weeks. Will assess efficacy of his right SI joint injection. If successful we will plan on therapeutic SI joint injections in the future.
== END 2025-02-17 10:54 | disposition home or self-care (01) ==
LOC: SC.PAINP 09:59
PROVIDERS: PCP Nurse Practitioner Family; Visit Provider Anesthesiology
DX: M46.1 Sacroiliitis, not elsewhere classified (principal); I11.9 Hypertensive heart disease without heart failure; I45.10 Unspecified right bundle-branch block; Z79.82 Long term (current) use of aspirin; Z79.890 Hormone replacement therapy; Z79.899 Other long term (current) drug therapy; Z79.85 Long-term (current) use of injectable non-insulin antidiabetic drugs
CPT/HCPCS: G0260; J0665; J1100; J2003

== ENCOUNTER 2025-02-21 07:00 | Day surgery (SDC) | payer MEDICARE, SELFPAY ==
[2025-02-15 13:56] VITALS: BMI 29.2
[2025-02-21 07:26] VITALS: BP 98/53; PULSE 52; RESP 16; TEMP 36.1; O2SAT 99
[2025-02-21 07:26] LABS: POC Glucose,Bedside 197 gm/dL (70-110)
[2025-02-21 08:25] VITALS: BP 104/73; PULSE 55; RESP 18; O2SAT 100
--- NOTE | 2025-02-21 08:49 | EXP.ANES.CKL ---
[facility] Disclaimer: The information contained in this section may have been updated after the patient was seen, as this information can be updated by other users. Medical History Labia minora hypertrophy left labia minora Vulvar irritation Urethral caruncle Urethrocele, female Lichen sclerosus Sinus bradycardia by electrocardiogram Sinus bradycardia Dizziness Right bundle branch block (RBBB) HTN (hypertension) Diastolic dysfunction Surgical History History of total abdominal hysterectomy History of skin surgery basal cell carcinoma Previous back surgery History of cholecystectomy H/O tubal ligation Family History Other Cancer Coronary artery disease Diabetes Hyperlipidemia Hypertension Thyroid disorder Social History Smoking Status: Never smoker second hand exposure: No alcohol intake: never substance use type: denies use current occupational status: retired Travel in the last 8 weeks?: None household members: none housing: house current occupational exposures/hazards: No caffeine: Yes Have you lived/traveled outside [place] in past 30 days?: No Contact w/someone who lives/traveled outside US past 30 days?: No Exposure to someone with infectious disease in past 14 days?: No Do you have a fever (greater than 100.4 F or 38 C)?: No Have you tested positive for COVID-19?: No Exposed to someone with COVID-19 in past 14 days?: No Do you have a sore throat?: No Do you have a cough?: No Do you have any weakness?: No Do you have any diarrhea?: No Are you experiencing any unusual bleeding?: No Do you have any muscle aches/pain?: No Do you have any abdominal pain?: No Are you experiencing loss of taste or smell?: No [facility] Anesthesia Checklist Patient Identification Patient Identification: Arm Band Structural Data Admitted From: Home Planned Operative Procedure/s: Labioplasty Consent for Planned Operative Procedure(s) Verified: Yes Verified Documents: Surgical Consent and History and Physical NPO Status Verified Time NPO: 06:30 (gatorade) Additional verifications Anesthesia Reactions: No Hx Blood Transfusions: No Blood Transfusion Reaction: No Airway Assessment Mallampati Score:: Class II C-Spine Mobility Assessed: Yes TMJ Mobility Assessed: Yes Dentition: Good Dentition Neurological Assessment Level of Consciousness: Awake, Alert and Appropriate Anesthesia Plan Anesthesia Risk discussed: Yes Anesthesia Plan: Verified ASA Class: II Anesthesia Type: MAC
[2025-02-21] MEDS: LIDOCAINE 1% W/EPI 1:100,000 20ML VIAL 20 ML (08:52)
[2025-02-21 09:10] VITALS: BP 111/54; PULSE 69; RESP 18; TEMP 36.1; O2SAT 100
--- NOTE | 2025-02-21 09:27 | EXP.OP.NOTE ---
Date of procedure: 02/21/25 Pre-op Diagnosis:: 1. Left labia minora hypertrophy Post-op Diagnosis:: 1. Left labia minora hypertrophy Procedure performed:: 1. Labiaplasty Surgeon:: Alba Acosta DO Art Glass Designer(s):: N/a OUTDOOR ADVENTURE INSTRUCTOR:: Severo Fair Anesthesia: MAC Estimated blood loss (mL): 0 Clinical Note:: Ms Leola Brewster is a 69 yo female who presents to [facility] for scheduled procedure. She complains of vulvar irritation and pinching, pulling and pain of left labia minora. Symptoms started several months ago. She has lost 100 lbs and is feeling great. She reports intermittent right labia majora irritation and pain with moving, wearing jeans and sitting with extra tissue on left labia. Operative findings:: 1. Lleft labia minora hypertrophy with labia minora measuring 4 cm in length, right labia minora measures 1 cm in length, mild vulvar erythema with areas of pale skin around introitus Operative note:: Risks, benefits and alternatives were discussed with the patient. Risks include but are not limited to bleeding, infection, and VTE. Patient voiced understanding and agreed to proceed. She was wheeled back to the operating room and placed under MAC without difficulty. She was placed in dorsal lithotomy position and prepped and draped in the normal sterile fashion. Straight catheter was used to drain the bladder. Left labia minora was grasped with Allis clamp. 1% lidocaine with epinephrine was injected along incision site. Portion of left labia minora measuring 3.75 x 2 cm was excised with scalpel and Burnett scissors. Skin was reapproximated with 3-0 Vicryl suture in a running stitch. Hemostasis was noted. Patient was awaken from anesthesia without difficulty. She was transported to recovery room in stable condition. Patient will be discharged home when awake and ambulating. She was also given instructions to follow-up in the office in 2 weeks. Condition: stable Disposition: same day Specimens:: N/a Complications:: None
[2025-02-21 09:40] VITALS: BP 118/72; PULSE 55; RESP 16; O2SAT 100
== END 2025-02-21 09:40 | disposition home or self-care (01) ==
PROVIDERS: PCP Nurse Practitioner Family; Visit Provider Obstetrics & Gynecology
PROC: (CPT 56620; principal; 2025-02-21 08:30)
DX: N90.60 Unspecified hypertrophy of vulva (principal); N90.89 Other specified noninflammatory disorders of vulva and perineum; I10 Essential (primary) hypertension; Z90.49 Acquired absence of other specified parts of digestive tract; Z90.710 Acquired absence of both cervix and uterus
CPT/HCPCS: 56620; 82962; J2003; J2004; J2405; J2704; J3010